=== PATIENT | female | born 1940 | race Caucasian/White ===

== ENCOUNTER 2016-12-06 11:23 | Outpatient (CLI) ==
[2016-12-06 17:40] VITALS: BMI 28.9
== END 2016-12-06 11:24 ==
LOC: AMBL 11:23
PROVIDERS: ATTEND Internal Medicine Geriatric Medicine
DX: R11.2 Nausea with vomiting, unspecified (principal); R68.89 Other general symptoms and signs

== ENCOUNTER 2016-12-06 11:32 | Observation (INO) | payer OTHER ==
[2016-12-06] MEDS ORDERED: SODIUM CHLORIDE 1,000 ML IV STA ×2 (11:46→14:55)
[2016-12-06] MEDS ORDERED: ZOFRAN 4 MG/2 ML IVP STA (11:46)
[2016-12-06] MEDS ORDERED: PROTONIX IV IVP STA (11:47)
[2016-12-06 12:18] LABS: BASOPHILS % (AUTO) 0.8 % (0.0-3.0); EOSINOPHILS # (AUTO) 0.1 K/ul (0.0-0.7); HEMATOCRIT 39.6 % (37.0-47.0); HEMOGLOBIN 13.3 g/dl (12.0-16.0); IMMATURE GRANULOCYTE % (AUTO) 0.2 % (0.0-5.0); LYMPHOCYTES # (AUTO) 1.1 K/uL (0.60-3.4); LYMPHOCYTES % (AUTO) 20.5 (10.0-50.0); MEAN CORPUSCULAR HEMOGLOBIN 32.8 pg (27.0-31.0); MEAN CORPUSCULAR HGB CONC 33.6 (31.8-35.4); MEAN CORPUSCULAR VOLUME 97.8 fl (81.0-99.0); MONOCYTES # (AUTO) 0.6 K/uL (0.4-2.0); MONOCYTES % (AUTO) 10.8 (0-10); NEUTROPHILS # (AUTO) 3.5 K/ul (2.0-6.9); NEUTROPHILS % (AUTO) 66.7; PLATELET COUNT 243 10^3/uL (140-440); RED BLOOD COUNT 4.05 10^6/ul (4.20-5.40); WHITE BLOOD COUNT 5.26 K/ul (4.6-10.2)
[2016-12-06 12:36] LABS: ALBUMIN 3.6 g/dL (3.4-5.0); ALBUMIN/GLOBULIN RATIO 1.16; ANION GAP 13.8; BILIRUBIN,TOTAL 0.38 mg/dL (0.00-1.20); BUN/CREATININE RATIO 14.86; CALCIUM 8.8 mg/dL (8.2-10.2); CREATININE 0.74 mg/dL (0.60-1.30); POTASSIUM 3.8 mmol/L (3.5-5.10); TOTAL PROTEIN 6.7 g/dL (5.8-8.1)
[2016-12-06 12:41] LABS: FLU INTERNAL QC INTERNAL QC VALID; RAPID FLU A NEGATIVE (NEGATIVE); RAPID FLU B NEGATIVE (NEGATIVE)
[2016-12-06] MEDS ORDERED: PHENERGAN 25 MG/ML VIAL 25 MG in SODIUM CHLORIDE 50 ML IV STA (12:53)
--- NOTE | 2016-12-06 12:53 | ED.PDOC ---
General ED Provider: Dr. DANIEL HOLDER Chief Complaint: Nausea/Vomiting Stated Complaint: patient is a 76 year old female who coems to the ER stating that she became nauseated after eating breakfast, vomited several times. [place] clammy and dizzy. she has been exosed to family members with stomach flu. Time Seen by Physician: 12:51 Mode of Arrival: Ambulance Information Source: Patient Exam Limitations: No limitations [facility] Documentation Reviewed and Agree: Yes GI Complaint Exam - Vomiting/Diarrhea Complaint/Exam Onset/Duration: today Symptoms Are: Resolved Episodes of Vomiting over last 24 Hours: 20 Episodes of Diarrhea Over Last 24 Hours: 0 Initial Severity: Severe Current Severity: Severe Character of Vomiting: Reports: Non-bilious Aggravating: Reports: Food Associated Signs and Symptoms: Reports: Dizziness, Light-headedness Recent Positive Test: No Use of Oral Contraceptives: No Use of Depoprovera: No Compliant With Contraceptive Use: No Non-GI Risk Factors: Reports: None Surgical Obstruction Risk Factors: Reports: None Related Surgical History: Reports: None Abdominal Findings: Present: None [place] Respirations Present: No Differential Diagnoses: Viral Gastroenteritis Review of Systems - Review Of Systems Constitutional: Reports: No symptoms Eyes: Reports: No symptoms Ears, Nose, Mouth, Throat: Reports: No symptoms Respiratory: Reports: No symptoms Cardiac: Reports: Lightheadedness GI: Reports: Nausea, Poor appetite, Vomiting : Reports: No symptoms Musculoskeletal: Reports: No symptoms Skin: Reports: No symptoms Neurological: Reports: Anxiety Endocrine: Reports: No symptoms Hematologic/Lymphatic: Reports: No symptoms All Other Systems: Reviewed and Negative Past Medical History - Past Medical History Endocrine: Reports: None Cardiovascular: Reports: Hypertension Respiratory: Reports: None Hematological: Reports: None Gastrointestinal: Reports: None Genitourinary: Reports: None Neuro/Psych: Reports: None Musculoskeletal: Reports: None Cancer: Reports: None Last Menstrual Period: na Other Pertinent Past Medical History: oseopenia - Surgical History General Surgical History: Reports: Hysterectomy - Family History Family History: Reports: None - Social History Smoking Status: Former smoker Hx Substance Use: No Alcohol Screening: Occasionally - Immunizations Tetanus Shot up to Date: Yes Physical Exam - Physical Exam Appearance: Ill-appearing, Well-nourished Ill-appearing: Moderate Eyes: ROBB, EOMI, Conjunctiva clear ENT: Ears normal, Nose normal, Oropharynx normal Neck: Supple Respiratory: Airway patent, Breath sounds clear, Breath sounds equal, Respirations nonlabored Cardiovascular: Pulses normal, No rub, No murmur, Bradycardia GI/: Soft, Nontender, No masses, Bowel sounds normal, No Organomegaly Musculoskeletal: Normal strength, ROM intact, No edema, No calf tenderness Skin: Warm, Dry, Normal color Neurological: Sensation intact, Motor intact, Reflexes intact, Cranial nerves intact, Alert, Oriented Psychiatric: Anxious Interpretation - Radiology Interpretation Radiology Interpretation By: Radiologist Radiology Results: No acute changes Exam Interpreted: CT Scan - [employer] Supervisor Rate: Lyndon Rhythm: Sinus Ectopy: None - EKG Interpretation Time of EKG #1: 13:36 Rate: Lyndon Rhythm: Sinus Ectopy: None [place]: NL Interpretation: sinus Dradycardia otehrwise normal ECG Re-Evaluation - Re-Evaluation Time of Re-Evaluation: 17:00 Status: Improved Appearance: NAD Lungs: Clear Additional Comments: Less dizzy. Critical Care Note - Critical Care Note Total Time (mins): 0 Course - Course Hematology/Chemistry: 12/06/16 12:10 12/06/16 12:10 Orders, Labs, Meds: Lab Review 12/06/16 12/06/16 12:10 13:15 WBC 5.26 RBC 4.05 L Hgb 13.3 Hct 39.6 MCV 97.8 MCH 32.8 H MCHC 33.6 RDW Coeff of Fernando 13.8 Plt Count 243 Immature Gran % (Auto) 0.2 Neut % (Auto) 66.7 Lymph % (Auto) 20.5 [place] % (Auto) 10.8 H Eos % (Auto) 1.0 Baso % (Auto) 0.8 Immature Gran # (Auto) 0.0 Neut # 3.5 Lymph # 1.1 [place] # 0.6 Eos # 0.1 Baso # 0.0 Sodium 139 Potassium 3.8 Chloride 105 Carbon Dioxide 24 Anion Gap 13.8 BUN 11 Creatinine 0.74 Estimated GFR (MDRD) 77.00 BUN/Creatinine Ratio 14.86 Glucose 109 Calcium 8.8 Total Bilirubin 0.38 AST 40 H ALT 27 Alkaline Phosphatase 52 L Total Creatine Kinase 145 CK-MB (CK-2) 2.1 CK-MB (CK-2) % 1.80427 Troponin I < 0.0100 Total Protein 6.7 Albumin 3.6 Globulin 3.1 Albumin/Globulin Ratio 1.16 Amylase 66 Lipase 24 Urine Color Yellow Urine Clarity Clear Urine pH 7.0 Ur Specific [place] 1.020 Urine Protein Negative Urine Glucose (UA) Negative Urine Ketones 3+ Urine Blood Negative Urine Nitrite Negative Urine Bilirubin Negative Urine Urobilinogen 0.2 Ur Leukocyte Esterase Negative Influenza A (Rapid) Negative Influenza B (Rapid) Negative Orders Category Date Time Status EKG-(ED ONLY) Stat CARDIO 12/06/16 13:29 Completed ED IV/MEDIPORT/POWERPORT .ONCE EMERGENCY 12/06/16 11:46 Active AMYLASE Stat LAB 12/06/16 12:10 Completed CBC W/ AUTO DIFF Stat LAB 12/06/16 12:10 Completed COMPREHENSIVE METABOLIC PANEL Stat LAB 12/06/16 12:10 Completed CREATINE KINASE Stat LAB 12/06/16 12:10 Completed LIPASE Stat LAB 12/06/16 12:10 Completed MOLECULAR GROUP A STREP Stat LAB 12/06/16 12:10 Results RAPID FLU A/B Stat LAB 12/06/16 12:10 Completed STREP SCREEN Stat LAB 12/06/16 12:10 Results TROPONIN I Stat LAB 12/06/16 12:10 Completed UA [URINALYSIS C & S IF INDICATED] Stat LAB 12/06/16 13:15 Completed 0.9 % Sodium Chloride [Saline Flush] MEDS 12/06/16 11:46 Active 1 syr IVF PRN PRN Ondansetron HCl/Pf [Zofran 4 mg/2 ml] MEDS 12/06/16 11:46 Discontinued 4 mg IVP ONCE STA Pantoprazole Sodium [Protonix IV] MEDS 12/06/16 11:47 Discontinued 40 mg IVP ONCE STA Promethazine HCl [Phenergan 25 mg/ml Vial] MEDS 12/06/16 12:56 Discontinued 25 mg .ROUTE .STK-MED ONE Promethazine HCl [Phenergan 25 mg/ml Vial] 25 mg MEDS 12/06/16 12:53 Discontinued 0.9 % Sodium Chloride [Sodium Chloride] 50 ml IV ONCE Sodium Chloride 0.9% [Sodium Chloride] 1,000 ml MEDS 12/06/16 11:46 Discontinued IV BOLUS Sodium Chloride 0.9% [Sodium Chloride] 1,000 ml MEDS 12/06/16 14:55 Discontinued IV BOLUS CHEST, 1V AP ONLY Stat RADS 12/06/16 14:[address] HEAD W/O CONTRAST Stat RADS 12/06/16 13:29 Completed Medications Generic Name Dose Route Start Last Admin Trade Name Freq PRN Reason Stop Dose Admin Acetaminophen 650 mg 12/06/16 16:49 Tylenol PO Q4H PRN Fever >101 Aspirin 81 mg 12/08/16 09:00 Aspirin Ec PO EVERY OTHER DAY DALTON Enoxaparin Sodium 40 mg 12/07/16 09:00 Lovenox SUBCUT DAILY DALTON Sodium Chloride 1,000 mls @ 150 mls/hr 12/06/16 17:00 Sodium Chloride IV .Q6H40M DALTON Non-Formulary Medication 5 mg 12/06/16 21:00 Ramipril [Ramipril] PO BEDTIME DALTON Ondansetron HCl 4 mg 12/06/16 16:49 Zofran 4 Mg/2 Ml IVP Q6H PRN Nausea / Vomiting Simvastatin 40 mg 12/06/16 21:00 Zocor PO BEDTIME DALTON Sodium Chloride 1 syr 12/06/16 11:46 Saline Flush IVF PRN PRN To flush IV Discontinued Medications Generic Name Dose Route Start Last Admin Trade Name Freq PRN Reason Stop Dose Admin Sodium Chloride 1,000 mls @ 1,000 mls/hr 12/06/16 11:46 12/06/16 12:12 Sodium Chloride IV 12/06/16 12:45 1,000 mls/hr BOLUS STA Administration Promethazine HCl 25 mg/ Sodium 51 mls @ 75 mls/hr 12/06/16 12:53 12/06/16 13: 10 Chloride IV 12/06/16 13:33 75 mls/hr ONCE STA Administration Sodium Chloride 1,000 mls @ 1,000 mls/hr 12/06/16 14:55 12/06/16 14:47 Sodium Chloride IV 12/06/16 15:54 1,000 mls/hr BOLUS STA Administration Ondansetron HCl 4 mg 12/06/16 11:46 12/06/16 12:12 Zofran 4 Mg/2 Ml IVP 12/06/16 11:47 4 mg ONCE STA Administration Pantoprazole Sodium 40 mg 12/06/16 11:47 12/06/16 12:13 Protonix Iv IVP 12/06/16 11:48 40 mg ONCE STA Administration Vital Signs: Temp Pulse Resp BP Pulse Ox 12/06/16 11:34 97.5 F L 58 L 16 128/92 H 95 Departure - Departure Time of Disposition: 17:15 Disposition: PLACED OBSERVATION Discharge Problem: Gastroenteritis, Dizziness Condition: Fair Pt referred to PMD for follow-up: Yes Allergies/Adverse Reactions: Allergies Penicillins Allergy (Unverified 12/06/16 11:48) RASH Home Medications: Ambulatory Orders Aspirin [Aspirin Ec] 81 mg PO EVERY OTHER DAY 06/14/15 Biotin/Silic/Cystein/Lut/Mvmin [Nick Matrix 5000 Complete Tab] 1 each PO DAILY 06/14/15 Lactobacillus Cmb#7/Fos/Inulin [Probiotic Complex Tablet] 1 each PO DAILY Omega3/Dha/Epa/Fish Oil/Vit D3 [Fish Oil + Vitamin D-3 Softgel] 1 each PO DAILY 06/14/15 Raloxifene HCl 60 mg PO DAILY 06/14/15 Ramipril 5 mg PO BEDTIME 06/14/15 Simvastatin 40 mg PO BEDTIME 06/14/15 Turmeric Root Extract [Turmeric] 500 mg PO DAILY 06/14/15 Loratadine 10 mg PO DAILY 06/19/16
[2016-12-06] MEDS ORDERED: PHENERGAN 25 MG/ML VIAL ONE (12:56)
[2016-12-06 13:25] LABS: BILIRUBIN,URINE Negative (NEGATIVE); KETONES,URINE 3+ (NEGATIVE); LEUKOCYTE ESTERASE ,URINE Negative (NEGATIVE); NITRITE,URINE Negative (NEGATIVE); PROTEIN,URINE Negative (NEGATIVE); URINE, BLOOD Negative (NEGATIVE)
[2016-12-06 13:26] LABS: ADD URINE MICROSCOPIC NO
[2016-12-06 14:03] LABS: CREATINE KINASE 145 U/L
--- NOTE | 2016-12-06 14:04 | CT ---
EXAM: CT head without contrast. HISTORY: Dizziness. COMPARISON: None available. TECHNIQUE: Multiple axial images of the brain were obtained from the skull base through the vertex without intravenous contrast. FINDINGS: There is no intracranial hemorrhage or extraaxial collection. The torres-white differentia tion is maintained without evidence for acute large vascular territory infarction. There are areas of periventricular and subcortical white matter low attenuation. The cortical sulci and cerebral ve ntricles are symmetrically enlarged. The basal cisterns are well visualized. There is no hydroceph alus, mass effect, or midline shift. The paranasal sinuses and mastoid air cells are clear. The ca lvarium is intact. IMPRESSION: 1. No acute intracranial abnormality. 2. Chronic small vessel ischemic changes and atrophy.
[2016-12-06 14:24] LABS: CREATINE KINASE MB 2.1 ng/ml (0.0-3.6)
--- NOTE | 2016-12-06 15:09 | DI ---
EXAM: Chest, one-view HISTORY: Cough FINDINGS: Cardiac and mediastinal contours are normal. Pulmonary vasculature is normal. Lungs are clear. Bony thorax is unremarkable. IMPRESSION: Within normal limits
[2016-12-06] MEDS ORDERED: ZOFRAN 4 MG/2 ML IVP PRN (16:49)
[2016-12-06] MEDS ORDERED: TYLENOL PO PRN (16:49)
[2016-12-06 17:40] VITALS: BMI 28.9
[2016-12-06] MEDS: SODIUM CHLORIDE 1,000 ML IV SCH (20:00)
[2016-12-06] MEDS ORDERED: ZOCOR PO SCH (21:00)
[2016-12-06] MEDS ORDERED: RAMIPRIL 5 MG PO SCH (21:00)
[2016-12-07] MEDS: SODIUM CHLORIDE 1,000 ML IV SCH ×5 (02:05→22:52)
[2016-12-07 08:55] LABS: BASOPHILS % (AUTO) 0.5 % (0.0-3.0); EOSINOPHILS % (AUTO) 0.9 % (0.0-7.0); HEMATOCRIT 37.8 % (37.0-47.0); HEMOGLOBIN 12.5 g/dl (12.0-16.0); IMMATURE GRANULOCYTE % (AUTO) 0.2 % (0.0-5.0); LYMPHOCYTES # (AUTO) 1.5 K/uL (0.60-3.4); LYMPHOCYTES % (AUTO) 34.4 (10.0-50.0); MEAN CORPUSCULAR HEMOGLOBIN 32.3 pg (27.0-31.0); MEAN CORPUSCULAR HGB CONC 33.1 (31.8-35.4); MEAN CORPUSCULAR VOLUME 97.7 fl (81.0-99.0); MONOCYTES # (AUTO) 0.5 K/uL (0.4-2.0); MONOCYTES % (AUTO) 10.8 (0-10); NEUTROPHILS # (AUTO) 2.3 K/ul (2.0-6.9); NEUTROPHILS % (AUTO) 53.2; PLATELET COUNT 248 10^3/uL (140-440); RED BLOOD COUNT 3.87 10^6/ul (4.20-5.40); WHITE BLOOD COUNT 4.36 K/ul (4.6-10.2)
[2016-12-07] MEDS: LOVENOX SUBCUT SCH (09:03)
[2016-12-07] MEDS: [UNRECOGNIZED DRUG - MIXTURE] PO SCH (09:04)
[2016-12-07] MEDS: NON-FORMULARY MEDICATION (Cyanocobalamin (Vitamin B-12) [Vitamin B-12] 2,500 MCG) PO SCH (09:10)
[2016-12-07] MEDS: EVISTA PO SCH (09:12)
[2016-12-07 09:13] LABS: ANION GAP 11.6; BUN/CREATININE RATIO 9.09; CALCIUM 8.3 mg/dL (8.2-10.2); CREATININE 0.77 mg/dL (0.60-1.30); POTASSIUM 3.6 mmol/L (3.5-5.10)
[2016-12-07] MEDS: [UNRECOGNIZED DRUG - OTHER] PO SCH (09:13)
[2016-12-07] MEDS: FOS PO SCH (09:13)
[2016-12-07] MEDS: INULIN PO SCH (09:13)
[2016-12-07] MEDS: LACTOBACILLUS CMB PO SCH (09:13)
[2016-12-07] MEDS: NON-FORMULARY MEDICATION (Loratadine [Loratadine] 10 MG) PO SCH (09:15)
[2016-12-07] MEDS: TURMERIC ROOT EXTRACT 500 MG PO SCH (09:17)
[2016-12-07] MEDS ORDERED: ZOCOR PO SCH (21:00)
[2016-12-07] MEDS ORDERED: RAMIPRIL 5 MG PO SCH (21:00)
[2016-12-08] MEDS: SODIUM CHLORIDE 1,000 ML IV SCH ×2 (05:09→13:01)
[2016-12-08 05:27] LABS: EOSINOPHILS # (AUTO) 0.1 K/ul (0.0-0.7); EOSINOPHILS % (AUTO) 1.9 % (0.0-7.0); HEMATOCRIT 34.8 % (37.0-47.0); HEMOGLOBIN 11.8 g/dl (12.0-16.0); LYMPHOCYTES # (AUTO) 1.1 K/uL (0.60-3.4); LYMPHOCYTES % (AUTO) 34.6 (10.0-50.0); MEAN CORPUSCULAR HEMOGLOBIN 32.5 pg (27.0-31.0); MEAN CORPUSCULAR HGB CONC 33.9 (31.8-35.4); MEAN CORPUSCULAR VOLUME 95.9 fl (81.0-99.0); MONOCYTES # (AUTO) 0.5 K/uL (0.4-2.0); MONOCYTES % (AUTO) 16.3 (0-10); NEUTROPHILS # (AUTO) 1.4 K/ul (2.0-6.9); NEUTROPHILS % (AUTO) 46.2; PLATELET COUNT 226 10^3/uL (140-440); RED BLOOD COUNT 3.63 10^6/ul (4.20-5.40); WHITE BLOOD COUNT 3.12 K/ul (4.6-10.2)
[2016-12-08 05:44] LABS: ANION GAP 11.2; BUN/CREATININE RATIO 8.45; CALCIUM 8.3 mg/dL (8.2-10.2); CREATININE 0.71 mg/dL (0.60-1.30); POTASSIUM 3.2 mmol/L (3.5-5.10)
[2016-12-08] MEDS: LACTOBACILLUS CMB PO SCH (09:02)
[2016-12-08] MEDS: [UNRECOGNIZED DRUG - OTHER] PO SCH (09:02)
[2016-12-08] MEDS: LOVENOX SUBCUT SCH (09:02)
[2016-12-08] MEDS: FOS PO SCH (09:02)
[2016-12-08] MEDS: INULIN PO SCH (09:02)
[2016-12-08] MEDS: ASPIRIN EC PO SCH ×2 (09:02→09:05)
[2016-12-08] MEDS: EVISTA PO SCH (09:03)
[2016-12-08] MEDS: NON-FORMULARY MEDICATION (Loratadine [Loratadine] 10 MG) PO SCH (09:03)
[2016-12-08] MEDS: NON-FORMULARY MEDICATION (Cyanocobalamin (Vitamin B-12) [Vitamin B-12] 2,500 MCG) PO SCH (09:04)
[2016-12-08] MEDS: [UNRECOGNIZED DRUG - MIXTURE] PO SCH (09:05)
[2016-12-08] MEDS: TURMERIC ROOT EXTRACT 500 MG PO SCH (09:06)
[2016-12-08 10:03] VITALS: BP 126/73; TEMP 97.5
[2016-12-08] MEDS ORDERED: K-DUR PO STA (10:09)
--- NOTE | 2016-12-11 09:08 | HP ---
DATE OF SERVICE: 12/06/16 REASON FOR HOSPITALIZATION: Nausea and vomiting HISTORY OF PRESENT ILLNESS: The patient is a 76 year old female who stays at home, and lives with her . She had her breakfast; green tea and bread, started vomiting almost 10 times, felt clammy and dizzy and was not able to walk straight and so the called the ambulance and the patient was brought to the [facility] emergency room. She was seen by Dr. Corado. Initial WBC and CBC was normal, BUN and creatinine was normal. AST was mildly elevated at 40. Her Monocytes were high. Urine 3+ ketone, Flu was negative and CAT scan of the Abdomen was not done. He did give some fluids but the patient was still unsteady to walk and still nauseous and not able to keep anything done. At that time the patient was admitted to the hospital for the IV fluids and the intractable nausea with acute gastroenteritis. REVIEW OF SYSTEMS: CONSTITUTIONAL: No night sweats. Weakness staggering. No fever or chills. HEENT: Eyes: No visual changes. No eye pain. No eye discharge. ENT: No runny nose. No epistaxis. No sinus pain. No sore throat. No odynophagia. No ear pain. No congestion. RESPIRATORY: No cough, no congestion. No hemoptysis. CARDIOVASCULAR: No angina symptoms. No CHF symptoms. No atypical chest pain for CAD. No palpitations. No shortness of breath. GASTROINTESTINAL: Abdominal cramping. Nausea and vomiting. No diarrhea or constipation. No hematemesis. No hematochezia. GENITOURINARY: No urgency. No frequency. No dysuria. No hematuria. No obstructive symptoms. No discharge. No pain. No significant abnormal bleeding. MUSCULOSKELETAL: No musculoskeletal pain. No joint swelling. No arthritis. NEUROLOGICAL: No headache. No neck pain. No syncope. No seizures. No dizziness. PSYCHIATRIC: Not anxious. No depression. No suicidal thoughts. No homicidal thoughts. SKIN: No rash. No lesions. No wounds. ENDOCRINE: No unexplained weight loss. No weight gain. HEMATOLOGIC/LYMPHATIC: No anemia. No purpura. No petechiae. No prolonged or excessive bleeding. No palpable lymph nodes. PERSONAL/FAMILY/SOCIAL HISTORY: The patient's smokes everyday. and lives with the . Family history is significant for the cancer. PAST MEDICAL/SURGICAL PROBLEMS: Hypertension Coronary artery disease Headaches Dyslipidemia Seasonal allergies Bilateral cataract surgery Hysterectomy Cholecystectomy MEDICATIONS: Raloxifene Simvastatin Ramipril Fish oil +Vitamin D-3 Probiotic complex tablet Turmeric Aspirin [place] Matrix 5000 complete tablet Vitamin B-12 Loratadine ALLERGIES: Penicillin PHYSICAL EXAMINATION: VITAL SIGNS: Blood pressure 128/92, respiratory rate 16, heart rate 58, temperature 97 and saturation is 95% on room air. HEENT: Head normocephalic, atraumatic. Eyes: Extraocular muscles are intact. Pupils are equal, round and reactive to light and accommodation. Ears: No lesions. Nose appeared normal. Throat: No exudate or erythema. Mucosa Dry. Pallor positive. No icterus. NECK: Supple. No JVD, no carotid bruit. No lymphadenopathy or thyromegaly. LUNGS: Decreased and clear to auscultation. Percussion note normal. Chest symmetrical. HEART: S1, S2, no S3. No murmurs. No cyanosis or clubbing. No ascites. Pulses: Dorsalis pedis and posterior tibial pulses +1 to +2 both sides. ABDOMEN: Soft. Diffused discomfort all over. Bowel sounds active. No CVA tenderness. No mass felt. EXTREMITIES: No edema. Full range of motion of all extremities, equal. NEUROLOGIC: No focal deficit. Cranial nerves II through XII are grossly intact. No headache, no double vision or headache. SKIN: Not dry. Intact. Turgor - normal. LYMPHATIC: No palpable lymph nodes/no lymphedema. MUSCULOSKELETAL: Normal joints with no swelling. Muscle tone is normal. LABS: WBC 5.26, hgb 13.3, hct 39.9, plt count 243, sodium 139, potassium 3.8, chloride 105, bicarb 24, BUN 11, creatinine 0.74, AST 40 and ALT 52. Urinalysis is negative and Serology negative. ASSESSMENT: 1. Acute gastroenteritis 2. Severe weakness 3. Dehydration 4. Hypertension 5. Dyslipidemia 6. Nicotine use PLAN: 1. Admit patient to the hospital 2. IV fluids 3. Lovenox for the DVT prophylaxis 4. Zofran Q 6 PRN 5. Continue home medications 6. High fluids 150ml per hour Will see the patient in daily rounds. TIME SPENT: More than 70 minutes. [facility]
--- NOTE | 2016-12-11 10:08 | PN ---
DATE OF SERVICE: 12/07/16 SUBJECTIVE: The patient is walking but using the walker. She says that she is still weak and unsteady. She was able to tolerate the jelly. The patient's is there , worried about her. REVIEW OF SYSTEMS: CONSTITUTIONAL: No fever, no chills. HEENT: Normal. ENDOCRINE: No weight gain, no weight loss. CVS: No angina symptoms. No CHF symptoms. No palpitations. No atypical chest pain for CAD. No shortness of breath. No PND, no orthopnea. RESPIRATORY: No cough, no hemoptysis. GI: No nausea, no vomiting. No abdominal pain. : No hematuria. No polyuria. MUSCULOSKELETAL:. No joint swelling. PSYCHIATRIC: Not anxious. No depression. No suicidal thoughts. No homicidal thoughts. SKIN: Intact. No rash. PHYSICAL EXAMINATION: V/S: Blood pressure 138/71, respiratory 18, heart rate 64 and temperature 97.6. HEENT: Normocephalic, atraumatic. Ears, eyes, nose and throat normal. Mucosa dry. NECK: Supple. No JVD, no carotid bruit. No lymphadenopathy. LUNGS: Clear to auscultation. No rales or rhonchi. HEART: S1, S2 normal. No S3. No murmur, gallop or regurgitation. ABDOMEN: Soft, nontender. Bowel sounds active. No rigidity. No rebound or guarding. No CVA tenderness. EXTREMITIES: No clubbing, cyanosis or pedal edema. MUSCULOSKELETAL: No joint swelling. NEUROLOGIC: Awake, alert, oriented times three. No focal deficit. LYMPHATIC: No lymph nodes palpable. SKIN: Intact. LABS: Sodium 143, potassium 3.6, chloride 112, bicarb 23, BUN 7, WBC 4.36, hgb 12.5, hct 37.8, plt count 248. ASSESSMENT: 1. Acute viral gastroenteritis 2. Dehydration which is resolved 3. Weakness and ataxia still present 4. History of hypertension 5. Dyslipidemia 6. Osteoarthritis. PLAN: 1. Resume regular diet 2. Continue Zofran 3. Continue Lovenox 4. If tolerates the diet the patient is willing to go home. Depending upon the patient's status she may go home today if she is feeling better. TIME SPENT: More than 30 minutes MTDD
--- NOTE | 2016-12-11 11:49 | PN ---
DATE OF SERVICE: 12/08/16 SUBJECTIVE: The patient was admitted with acute gastroenteritis and hypokalemia which is corrected. As of now the patient is eating and tolerating the food. She still has some dizziness when she walking otherwise walking with the walker. The patient's in the room. REVIEW OF SYSTEMS: CONSTITUTIONAL: No fever, no chills. HEENT: Normal. ENDOCRINE: No weight gain, no weight loss. CVS: No angina symptoms. No CHF symptoms. No palpitations. No atypical chest pain for CAD. No shortness of breath. No PND, no orthopnea. RESPIRATORY: No cough, no hemoptysis. GI: No nausea, no vomiting. No abdominal pain. : No hematuria. No polyuria. MUSCULOSKELETAL:. No joint swelling. PSYCHIATRIC: Not anxious. No depression. No suicidal thoughts. No homicidal thoughts. SKIN: Intact. No rash. PHYSICAL EXAMINATION: V/S: Blood pressure 126/53, respiratory rate 18, heart rate 55 and temperature 97.5. HEENT: Normocephalic, atraumatic. Ears, eyes, nose and throat normal. Mucosa dry. Pallor positive. No icterus. NECK: Supple. No JVD, no carotid bruit. No lymphadenopathy. LUNGS: Clear to auscultation. No rales or rhonchi. HEART: S1, S2 normal. No S3. No murmur, gallop or regurgitation. ABDOMEN: Soft, nontender. Bowel sounds active. No rigidity. No rebound or guarding. No CVA tenderness. EXTREMITIES: No clubbing, cyanosis or pedal edema. MUSCULOSKELETAL: No joint swelling. NEUROLOGIC: Awake, alert, oriented times three. No focal deficit. LYMPHATIC: No lymph nodes palpable. SKIN: Intact. LABS: WBC 3.12, hgb 11.8, hct 34.8, plt count 226, sodium 140, potassium 3.2 which is corrected after giving the potassium to 4.0, chloride 108, bicarb 24, BUN 6 and creatinine 0.71. ASSESSMENT: 1. Acute gastroenteritis 2. Dehydration 3. Hypokalemia 4. Hypertension 5. Dyslipidemia 6. History of hysterectomy PLAN: 1. Discharge the patient 2. Increase hydration 3. Probiotics yogurt 4. Followup with Dr. James as scheduled. TIME SPENT: More than 30 minutes MTDD
--- NOTE | 2017-01-07 14:59 | SSS ---
DATE OF SERVICE: 12/08/16 REASON FOR CONSULTATION/ADMISSION: Gastroenteritis with weakness HISTORY OF PRESENT ILLNESS: Onset-post breakfast vomiting- clammy- dizzy. Gerri Gutierrez who is a [facility] patient came to the emergency room with weakness, dizziness, nausea, vomiting and diarrheas. She was not able to keep anything down. At that time the patient is admitted to the hospital and started on the IV fluids Zofran. With the given fluid bolus the patient felt better and Protonix was given gradually. Lovenox was given for the DVT prophylaxis then gradually activity was increased which she tolerated well. She did not have any dizzy spells. CT did not show any acute problems. Clear liquid was given and then advanced as tolerated. She did tolerate the food well. As patient was doing fine and had no complication discharged home and had a followup with Dr. James as outpatient. REVIEW OF SYSTEMS: CONSTITUTIONAL: No night sweats. No fatigue, malaise, lethargy. No fever or chills. HEENT: Eyes: No visual changes. No eye pain. No eye discharge. ENT: No runny nose. No epistaxis. No sinus pain. No sore throat. No odynophagia. No ear pain. No congestion. RESPIRATORY: No cough, no congestion. No hemoptysis. CARDIOVASCULAR: No angina symptoms. No CHF symptoms. No atypical chest pain for CAD. No palpitations. No shortness of breath. GASTROINTESTINAL: No abdominal pain. Nausea and vomiting. No diarrhea or constipation. No hematemesis. No hematochezia. Poor appetite. GENITOURINARY: No urgency. No frequency. No dysuria. No hematuria. No obstructive symptoms. No discharge. No pain. No significant abnormal bleeding. MUSCULOSKELETAL: No musculoskeletal pain. No joint swelling. NEUROLOGICAL: Awake, alert, oriented to time, place and person. No headache. No neck pain. No syncope. No seizures. Light headedness. PSYCHIATRIC: Anxious. No depression. No suicidal thoughts. No homicidal thoughts. SKIN: No rash. No lesions. No wounds. ENDOCRINE: No unexplained weight loss. No weight gain. HEMATOLOGIC/LYMPHATIC: No anemia. No purpura. No petechiae. No prolonged or excessive bleeding. No palpable lymph nodes. PAST HISTORY: Hypertension Osteopenia Status post hysterectomy Status post bilateral cataracts Status post Cholecystectomy PERSONAL/FAMILY HISTORY/SOCIAL HISTORY: The patient is . History of smoking. No alcohol use. PHYSICAL EXAMINATION: VITAL SIGNS: Temperature 97.5, pulse 58, respiratory rate 16, blood pressure 128/92; height 5'5 and weight 170. HEENT: Head normocephalic, atraumatic. Eyes: Extraocular muscles are intact. Pupils are equal, round and reactive to light and accommodation. Ears: No lesions. Nose appeared normal. Throat: No exudate or erythema. Pallor positive. NECK: Supple. No JVD, no carotid bruit. No lymphadenopathy or thyromegaly. LUNGS: Bilateral equal and clear to auscultation. Percussion note normal. Chest symmetrical. HEART: S1, S2, no S3. No murmurs. No cyanosis or clubbing. No ascites. Pulses: Dorsalis pedis and posterior tibial pulses +1 to +2 both sides. ABDOMEN: Soft. Nontender. Bowel sounds active. No CVA tenderness. No mass felt. EXTREMITIES: No edema. Full range of motion of all extremities, equal. NEUROLOGIC: No focal deficit. Cranial nerves II through XII are grossly intact. No headache, no double vision or headache. Alert and oriented times three. SKIN: Not dry. Intact. Turgor - normal. LYMPHATIC: No palpable lymph nodes/no lymphedema. MUSCULOSKELETAL: Normal joints with no swelling. Muscle tone is normal. Old/present records reviewed: Yes. EDUCATION CARRIED OUT: Dehydration ALLERGIES: Penicillin MEDICATIONS: Raloxifene Simvastatin Ramipril Fish oil Probiotic Tumeric Aspirin [place] Matrix Vitamin B12 Loratadine LABS/EKG'S/X-RAY/ECHO/ABG: EKG- Sinus Bradycardia; Chest x-ray within normal limits, CT head with no acute intracranial abnormalities. AST 40 Alkaline phosphatase 52. Urinalysis 3+ ketones. Flu A and B are negative. PROGRESS NOTES: See EMR. DIAGNOSES: 1. Acute gastroenteritis 2. Hypokalemia 3. Hypertension 4. Dyslipidemia RECOMMENDATIONS/PLAN: 1. Soft diet 2-3 days 2. Probiotics 3. Yogurt 4. Increase hydration 5. Resume gradual exercise. TIME SPENT: More than 70 minutes. MTDD
== END 2016-12-08 13:55 | disposition home or self-care (01) ==
LOC: ED 11:32 → MEDSURG A 16:30
PROVIDERS: ADMIT Emergency Medicine; ATTEND Emergency Medicine
DX: K52.9 Noninfective gastroenteritis and colitis, unspecified (principal); R42 Dizziness and giddiness; R53.1 Weakness; R27.0 Ataxia, unspecified; E87.6 Hypokalemia; E86.0 Dehydration; I10 Essential (primary) hypertension; E78.5 Hyperlipidemia, unspecified; M19.90 Unspecified osteoarthritis, unspecified site; F17.200 Nicotine dependence, unspecified, uncomplicated; Z79.899 Other long term (current) drug therapy
CPT/HCPCS: 36415; 80048; 80053; 81001; 82150; 82550; 82553; 83690; 84132; 84484; 85025; 87651; 87804; 87880; 93005; 93010; 96361; 96365; 96372; 96375; 99217; 99219; 99226; 99284

== ENCOUNTER 2016-12-23 10:10 | Outpatient (CLI) ==
[2016-12-23 13:33] LABS: BASOPHILS # (AUTO) 0.1 K/uL (0-0.2); BASOPHILS % (AUTO) 0.9 % (0.0-3.0); EOSINOPHILS # (AUTO) 0.2 K/ul (0.0-0.7); HEMATOCRIT 44.3 % (37.0-47.0); HEMOGLOBIN 14.6 g/dl (12.0-16.0); IMMATURE GRANULOCYTE % (AUTO) 0.2 % (0.0-5.0); LYMPHOCYTES % (AUTO) 35.8 (10.0-50.0); MEAN CORPUSCULAR HEMOGLOBIN 32.3 pg (27.0-31.0); MONOCYTES # (AUTO) 0.5 K/uL (0.4-2.0); MONOCYTES % (AUTO) 9.7 (0-10); NEUTROPHILS # (AUTO) 2.7 K/ul (2.0-6.9); NEUTROPHILS % (AUTO) 49.4; PLATELET COUNT 397 10^3/uL (140-440); RED BLOOD COUNT 4.52 10^6/ul (4.20-5.40); WHITE BLOOD COUNT 5.45 K/ul (4.6-10.2)
[2016-12-23 13:35] LABS: PH,URINE 5.5 (5-9)
[2016-12-23 13:36] LABS: PROTEIN,URINE TRACE (NEGATIVE)
[2016-12-23 13:37] LABS: ADD URINE MICROSCOPIC YES; BILIRUBIN,URINE NEGATIVE (NEGATIVE); KETONES,URINE TRACE (NEGATIVE); LEUKOCYTE ESTERASE ,URINE 1+ (NEGATIVE); NITRITE,URINE NEGATIVE (NEGATIVE); URINE, BLOOD NEGATIVE (NEGATIVE)
[2016-12-23 14:06] LABS: ALBUMIN 3.7 g/dL (3.4-5.0); ALBUMIN/GLOBULIN RATIO 1.16; ANION GAP 12.6; BILIRUBIN,TOTAL 0.76 mg/dL (0.00-1.20); BUN/CREATININE RATIO 18.88; CALCIUM 9.4 mg/dL (8.2-10.2); CHOL/HDL RATIO 2.7 (4.5-5.5); CREATININE 0.9 mg/dL (0.60-1.30); POTASSIUM 4.6 mmol/L (3.5-5.10); TOTAL PROTEIN 6.9 g/dL (5.8-8.1)
== END 2016-12-23 10:11 | disposition home or self-care (01) ==
LOC: LAB 10:10
PROVIDERS: ATTEND General Practice
DX: E03.9 Hypothyroidism, unspecified (principal); I10 Essential (primary) hypertension; Z79.899 Other long term (current) drug therapy
CPT/HCPCS: 36415; 80053; 80061; 81001; 84443; 85025; 87086

== ENCOUNTER 2017-03-05 11:19 | Outpatient (CLI) | END 2017-03-05 11:20 | disposition home or self-care (01) | LOC: LAB 11:19 | PROVIDERS: ATTEND General Practice | DX: R50.9 Fever, unspecified (principal); R05 Cough; R51 Headache; R53.83 Other fatigue; R61 Generalized hyperhidrosis | CPT/HCPCS: 36415; 86644; 86645; 86710 ==

== ENCOUNTER 2017-03-13 10:50 | Outpatient (CLI) | payer OTHER ==
--- NOTE | 2017-03-13 11:24 | CT ---
EXAM: CT of the chest without contrast History: Cough. Comparison: Chest radiograph 12/06/2016, chest CT 04/02/2012 Technique: Multiplanar CT images through the thorax were obtained without the administration of IV contrast Findings: Normal heart size. No pericardial effusion. Mildly enlarged mediastinal lymph nodes stacia suring up to 1.3 cm in the pretracheal region. Evaluation for hilar lymph nodes is limited due to t he lack of contrast administration. No axillary adenopathy. Right middle lobe infiltrate with air bronchograms. No pneumothorax. No pleural fluid. Calcified alban ng nodules. Within the visualized upper abdomen, cholecystectomy clips. Small hiatal hernia. Calcified granulo mas within the spleen. No acute osseous abnormalities. Impression: 1. Right middle lobe pneumonia. Follow-up recommended to assure resolution and any underlying neop lastic etiology. 2. Mediastinal lymphadenopathy could be reactive or malignant. Close attention to on follow-up rec ommended.
== END 2017-03-13 10:51 | disposition home or self-care (01) ==
LOC: RAD 10:50
PROVIDERS: ATTEND General Practice
DX: R05 Cough (principal); Z87.891 Personal history of nicotine dependence

== ENCOUNTER 2017-04-02 09:51 | Outpatient (CLI) | payer OTHER ==
--- NOTE | 2017-04-02 12:05 | CT ---
EXAM: CT THORAX HISTORY: Pneumonia, follow-up. Cough. TECHNIQUE: CT thorax without intravenous contrast. 5-mm axial sections. Coronal and sagittal re-fo rmations. COMPARISON: 03/13/2017 FINDINGS: Normal heart size. Trace pericardial fluid. Thoracic aorta is within normal limits. Evaluation of the mediastinum and hilar structures is limited without the administration of intravenous contrast. There are mildly prominent subcarinal and right hilar lymph nodes measuring close to a centimeter short axis. These are stable. Prominent size of the thyroid gland. There is discoid consolidation extending from the right hilum into the upper right middle lobe. The re is no obvious endobronchial consolidation or mass. There is a nearly 1 cm nodule which is pleura l-based at the posterior right cardiophrenic angle unchanged since previous exam and an older CT eric ed 04/02/2012. This may represent a tiny atypical lymph node or a pericardial cyst, among other pos sibilities. Lungs are otherwise clear. No acute bony abnormality. IMPRESSION: 1. Persistent although improved consolidation in the right middle lobe. Consider follow-up chest r adiography to assure clearance. 2. Nonspecific mediastinal lymph nodes are stable. 3. Prominent thyroid gland.
== END 2017-04-02 09:52 | disposition home or self-care (01) ==
LOC: RAD 09:51
PROVIDERS: ATTEND General Practice
DX: J18.1 Lobar pneumonia, unspecified organism (principal); R05 Cough

== ENCOUNTER 2017-05-07 12:03 | Outpatient (CLI) | END 2017-05-07 12:04 | disposition home or self-care (01) | LOC: LAB 12:03 | PROVIDERS: ATTEND General Practice | DX: J02.9 Acute pharyngitis, unspecified (principal) | CPT/HCPCS: 87070 ==

== ENCOUNTER 2017-06-05 08:49 | Outpatient (CLI) ==
[2017-06-05 12:42] LABS: BASOPHILS % (AUTO) 0.8 % (0.0-3.0); EOSINOPHILS # (AUTO) 0.2 K/ul (0.0-0.7); EOSINOPHILS % (AUTO) 4.9 % (0.0-7.0); HEMATOCRIT 43.2 % (37.0-47.0); HEMOGLOBIN 14.4 g/dl (12.0-16.0); IMMATURE GRANULOCYTE % (AUTO) 0.2 % (0.0-5.0); MEAN CORPUSCULAR HEMOGLOBIN 32.7 pg (27.0-31.0); MEAN CORPUSCULAR HGB CONC 33.3 (31.8-35.4); MONOCYTES # (AUTO) 0.6 K/uL (0.4-2.0); MONOCYTES % (AUTO) 11.5 (0-10); NEUTROPHILS % (AUTO) 40.6; PLATELET COUNT 352 10^3/uL (140-440); RED BLOOD COUNT 4.41 10^6/ul (4.20-5.40); WHITE BLOOD COUNT 4.86 K/ul (4.6-10.2)
[2017-06-05 13:04] LABS: BILIRUBIN,URINE Negative (NEGATIVE); KETONES,URINE Negative (NEGATIVE); LEUKOCYTE ESTERASE ,URINE Negative (NEGATIVE); NITRITE,URINE Negative (NEGATIVE); PH,URINE 7.5 (5-9); PROTEIN,URINE Negative (NEGATIVE); URINE, BLOOD Negative (NEGATIVE)
[2017-06-05 13:07] LABS: ALBUMIN 3.8 g/dL (3.4-5.0); ALBUMIN/GLOBULIN RATIO 1.12; BILIRUBIN,TOTAL 0.76 mg/dL (0.00-1.20); BUN/CREATININE RATIO 10.84; CALCIUM 9.7 mg/dL (8.2-10.2); CHOL/HDL RATIO 2.5 (4.5-5.5); CREATININE 0.83 mg/dL (0.60-1.30); TOTAL PROTEIN 7.2 g/dL (5.8-8.1)
[2017-06-05 13:11] LABS: ADD URINE MICROSCOPIC NO
== END 2017-06-05 08:50 | disposition home or self-care (01) ==
LOC: LAB 08:49
PROVIDERS: ATTEND General Practice
DX: E03.9 Hypothyroidism, unspecified (principal); I10 Essential (primary) hypertension; R27.0 Ataxia, unspecified; Z79.899 Other long term (current) drug therapy
CPT/HCPCS: 36415; 80053; 80061; 81001; 85025

== ENCOUNTER 2017-06-11 14:11 | Outpatient (CLI) ==
--- NOTE | 2017-06-11 14:54 | CT ---
Exam: CT of the chest without intravenous contrast. Comparison: CT performed 04/02/2017. Reason for exam: Abnormal findings on diagnostic imaging. FINDINGS: Significantly improved consolidative changes with a small residual focus of atelectasis o r pneumonia in the right anterior lung base with air bronchograms. The heart is not enlarged. No pn eumothorax or pleural effusion. The aorta is normal in its course and caliber. No suspicious appea ring osteoblastic or osteolytic lesions. The gallbladder is been removed. Old granulomas disease is seen within the spleen. Hepatic hypodensities in the partially imaged upper abdomen are incompletely evaluated without intra venous contrast administration. Impression: Small residual focus of atelectasis or consolidation in the right anterior lung base. Imaging findi ngs are significantly improved compared to the previous exams. If clinical concern exists, follow-u p CT may be performed to document resolution.
== END 2017-06-11 14:12 | disposition home or self-care (01) ==
LOC: RAD 14:11
PROVIDERS: ATTEND General Practice
DX: R93.8 Abnormal findings on diagnostic imaging of other specified body structures (principal)

== ENCOUNTER 2017-12-23 12:11 | Outpatient (CLI) | payer OTHER | END 2017-12-23 12:12 | disposition home or self-care (01) | LOC: FCC-LAB 12:11 | PROVIDERS: ATTEND General Practice | DX: I10 Essential (primary) hypertension (principal); Z79.899 Other long term (current) drug therapy; N39.0 Urinary tract infection, site not specified | CPT/HCPCS: 36415; 80053; 80061; 81001; 85025; 87086 ==

== ENCOUNTER 2018-06-30 10:43 | Outpatient (CLI) | payer OTHER | END 2018-06-30 10:44 | disposition home or self-care (01) | LOC: RHC-LAB 10:43 | PROVIDERS: ATTEND General Practice | DX: E03.9 Hypothyroidism, unspecified (principal); I10 Essential (primary) hypertension; Z79.899 Other long term (current) drug therapy | CPT/HCPCS: 36415; 80053; 80061; 81001; 84443; 85025; 87086 ==

== ENCOUNTER 2018-07-20 08:14 | Day surgery (SDC) | payer OTHER ==
[2018-07-20] MEDS ORDERED: VERSED ONE (10:30)
[2018-07-20] MEDS ORDERED: DIPRIVAN 20 ML VIAL IVP ONE (10:30)
--- NOTE | 2018-07-21 09:42 | OP ---
INDICATIONS FOR PROCEDURE: 78-year-old female presents for colonoscopy exam. She has a family history of colon polyps involving her brother in his fifties and her mother had colon cancer at age 57. MEDICATIONS: SEE ANESTHESIA NOTES. PROCEDURE: COLONOSCOPY WITH SNARE POLYPECTOMY. REPORT: The risks, benefits, alternatives and limitations were discussed in detail with the patient. Informed consent was obtained. After adequate sedation was achieved, a digital rectal exam revealed good tone, no masses. The colonoscope was introduced into the rectum and advanced under direct visual guidance to the cecum. The cecum was identified by the appendiceal orifice and IC valve. I then slowly withdrew the scope in a circumferential manner examining the mucosa quite carefully. I looked on the proximal and distal side of folds and flexures as best as possible. I was able to retroflex the scope in the right colon and left colon to increase visualization. At the hepatic flexure, there was a pedunculated multi lobular polyp. I removed this by snare technique. It was about 1 cm in size. In the rectum there was as small 5 mm semi sessile polyp that I removed by snare technique. There were a few small mouth diverticula in the sigmoid colon. No other abnormalities were noted including on retroflex view of the anal canal. The prep was good. The withdrawal time was 9 minutes and 45 seconds. The patient tolerated the procedure well with stable vital signs and pulse oximetry throughout. IMPRESSION: 1. TWO (2) POLYPS REMOVED. 2. MILD DIVERTICULOSIS. RECOMMENDATIONS: 1. High fiber diet. 2. Office visit as needed. 3. Await polyp pathology. If everything is benign as expected, I recommend repeat colonoscopy examination again in 3 years, sooner if there are any signs or symptoms to indicate otherwise. CC: DR. MAIKEL BLANTON
[2018-07-22 13:45] VITALS: BP 123/67; TEMP 98.6
== END 2018-07-20 11:45 | disposition home or self-care (01) ==
LOC: SURG 08:14
PROVIDERS: ATTEND Internal Medicine Gastroenterology
DX: Z86.010 Personal history of colon polyps (principal); Z80.0 Family history of malignant neoplasm of digestive organs; Z83.71 Family history of colonic polyps; D12.3 Benign neoplasm of transverse colon; K62.1 Rectal polyp

== ENCOUNTER 2018-12-22 08:27 | Outpatient (CLI) | END 2018-12-22 08:28 | disposition home or self-care (01) | LOC: RHC-LAB 08:27 | PROVIDERS: ATTEND General Practice | DX: E03.9 Hypothyroidism, unspecified (principal); I10 Essential (primary) hypertension; Z79.899 Other long term (current) drug therapy | CPT/HCPCS: 36415; 80053; 80061; 81001; 84443; 85025; 87086 ==

== ENCOUNTER 2019-06-22 08:00 | Outpatient (CLI) | END 2019-06-22 08:01 | disposition home or self-care (01) | LOC: RHC-LAB 08:00 | PROVIDERS: ATTEND General Practice | DX: E03.9 Hypothyroidism, unspecified (principal); I10 Essential (primary) hypertension; Z79.899 Other long term (current) drug therapy | CPT/HCPCS: 36415; 80053; 80061; 81001; 84443; 85025 ==

== ENCOUNTER 2021-06-04 10:09 | Observation (INO) ==
--- NOTE | 2021-06-04 10:36 | ED.PDOC ---
General ED Provider: Dr. BRUNO CASILLAS Chief Complaint: Hypertension Stated Complaint: Sudden onset of chest palpitations this morning. Upon arrival to ER placed on nuclear monitoring technician and HR noted to increase from baselined of 79 to 170 bpm. Denies chest pain or dyspnea Mode of Arrival: Walk-In Information Source: Patient Exam Limitations: No limitations Primary Care Provider: ZEN HAYDEN MD Nursing and Triage Documentation Reviewed and Agree: Yes Does patient meet sepsis criteria?: No System Inflammatory Response Syndrome: Not Applicable Sepsis Protocol: For patient's 13 years and over: Temp is 96.8 and below OR 101 and greater Pulse >90 BPM Resp >20/minute Acutely Altered Mental Status Are patient's symptoms suggestive of a new infection, such as: -Pneumonia -Skin, Soft Tissue -Endocarditis -UTI -Bone, Joint Infection -Implantable Device -Acute Abdominal Infection -Wound Infection -Meningitis -Blood Stream Catheter Infection -Unknown Cardiovascular Complaint Exam Palpitations Complaint/Exam Onset/Duration: this AM Symptoms Are: Still present Timing: Constant Initial Severity: Moderate Current Severity: Moderate Character: Reports Fast and Irregular Aggravating: Reports None Alleviating: Reports None Associated Signs and Symptoms: Reports Lightheadedness and Dizziness Related Surgical History: Reports None Cardiac Risk Factors: Reports Hypertension and Elevated lipids Pulmonary Embolism Risk Factors: Reports None Atrial Fibrillation Risk Factors: Reports Hypertension Thyroid Exam: Normal Differential Diagnoses: Cardiomyopathy, Mitral Valve Prolapse and Hyperventilation Quality Indicators for Cardiac Chest Pain: EKG in 10min. Review of Systems Review Of Systems Constitutional: Reports Malaise and Weakness Eyes: Reports No symptoms Ears, Nose, Mouth, Throat: Reports No symptoms Respiratory: Reports Short of air; Denies Cough, Orthopnea, Stridor or Other Cardiac: Reports No symptoms GI: Reports No symptoms : Reports No symptoms Musculoskeletal: Reports No symptoms Skin: Reports No symptoms Neurological: Reports Anxiety Endocrine: Reports No symptoms Hematologic/Lymphatic: Reports No symptoms All Other Systems: Reviewed and Negative [facility] Medical History (Updated 06/04/21 @ 12:38 by BRUNO CASILLAS DO) Cataract Dizziness Dyslipidemia Gastroenteritis History of seasonal allergies Hypertension Measles Mumps Osteopenia Varicella Family History Mother No problems noted. FATHER No problems noted. SISTER No problems noted. BROTHER No problems noted. Social History Smoking and tobacco status: Never smoker Passive smoking exposure: No Second hand smoke exposure: No Smoking risk assessment performed: Yes Alcohol intake: never Counseling given: No Substance use type: does not use Counseling given: No Special hyun needs: No Household members: spouse Housing: house Lives independently: Yes Daycare: no daycare prison: No Sexually active: Yes Do you think of yourself as: straight/heterosexual Current gender identity: female Seatbelt use: always Drives intoxicated or rides with intoxicated emergency detail driver: No Surgical History Cataract extraction and insertion of intraocular lens Lumpectomy of breast Status post cholecystectomy Status post hysterectomy Female Reproductive History Menstrual Hx Hysterectomy: Yes Hx Tubal Ligation: No Physical Exam Physical Exam Appearance: Reports Well-appearing and No pain distress Ill-appearing: Mild Pain Distress: None Eyes: Reports ROBB, EOMI, Conjunctiva clear and Conjunctiva inflammed ENT: Reports Ears normal, Nose normal and Oropharynx normal Neck: Nonsupple Respiratory: Reports Airway patent, Breath sounds clear and Breath sounds equal Cardiovascular: Reports Pulses normal, No rub, No murmur, Irregular rhythm and Tachycardia GI/: Reports Soft, Nontender, No masses and Bowel sounds normal Musculoskeletal: Reports Normal strength, ROM intact and No edema Skin: Reports Warm and Normal color Neurological: Reports Sensation intact, Motor intact, Reflexes intact, Cranial nerves intact, Alert and Oriented Psychiatric: Reports Affect appropriate, Mood appropriate and Anxious Interpretation EKG Interpretation Time of EKG #1: 10:25 Rate: Tachy Rhythm: Other (atrial fib RVR) Ectopy: None ST Segment: Normal Interpretation: Atrial Fib RVR Physician Notification Case Discussed Physician Notified: Dr Hayden-admit for eval and tx Time of Notification: 12:15 Critical Care Note Critical Care Note Total Critical Care Time (mins): 60 Course Course Hematology/Chemistry: 06/04/21 10:56 06/04/21 10:56 Orders, Labs, Meds: Lab Review 06/04/21 06/04/21 06/04/21 10:40 10:56 10:56 WBC 7.77 RBC 4.50 Hgb 14.9 Hct 43.8 MCV 97.3 MCH 33.1 H MCHC 34.0 RDW Coeff of Fernando 13.3 Plt Count 329 Immature Gran % (Auto) 0.3 Neut % (Auto) 55.8 Lymph % (Auto) 32.2 [place] % (Auto) 9.8 Eos % (Auto) 1.4 Baso % (Auto) 0.5 Neut # (Auto) 4.3 Lymph # (Auto) 2.5 [place] # (Auto) 0.8 Eos # (Auto) 0.1 Baso # (Auto) 0.0 Immature Gran # (Auto) 0.0 PT INR APTT Sodium 138.3 Potassium 4.51 Chloride 108.0 H Carbon Dioxide 23.3 Anion Gap 11.51 BUN 12.5 Creatinine 0.83 Estimated GFR (MDRD) 66.00 BUN/Creatinine Ratio 15.06 Glucose 102.5 Calcium 9.12 Total Bilirubin 0.67 AST 30.0 ALT 21.5 Alkaline Phosphatase 65.3 Troponin I < 0.012 Total Protein 6.98 Albumin 4.08 Globulin 2.90 Albumin/Globulin Ratio 1.40 D-Dimer Adenovirus (PCR) Not detected B. pertussis DNA (PCR) Not detected B.parapertussis DNA PCR Not detected C. pneumoniae DNA (PCR) Not detected Coronavirus OC43 (PCR) Not detected Coronavirus HKU1 (PCR) Not detected Coronavirus 229E (PCR) Not detected Coronavirus NL63 (PCR) Not detected Human Metapneumovir PCR Not detected Influenza Type A (PCR) Not detected Influenza B (RT-PCR) Not detected M. pneumoniae (PCR) Not detected Parainfluenza 1 (PCR) Not detected Parainfluenza 2 (PCR) Not detected Parainfluenza 3 (PCR) Not detected Parainfluenza 4 (PCR) Not detected RSV (PCR) Not detected Entero/Rhino (PCR) Not detected SARS-CoV-2 (PCR) Not detected 06/04/21 06/04/21 11:11 11:11 WBC RBC Hgb Hct MCV MCH MCHC RDW Coeff of Fernando Plt Count Immature Gran % (Auto) Neut % (Auto) Lymph % (Auto) [place] % (Auto) Eos % (Auto) Baso % (Auto) Neut # (Auto) Lymph # (Auto) [place] # (Auto) Eos # (Auto) Baso # (Auto) Immature Gran # (Auto) PT 9.9 INR 0.93 APTT 24.5 Sodium Potassium Chloride Carbon Dioxide Anion Gap BUN Creatinine Estimated GFR (MDRD) BUN/Creatinine Ratio Glucose Calcium Total Bilirubin AST ALT Alkaline Phosphatase Troponin I Total Protein Albumin Globulin Albumin/Globulin Ratio D-Dimer 370.10 Adenovirus (PCR) B. pertussis DNA (PCR) B.parapertussis DNA PCR C. pneumoniae DNA (PCR) Coronavirus OC43 (PCR) Coronavirus HKU1 (PCR) Coronavirus 229E (PCR) Coronavirus NL63 (PCR) Human Metapneumovir PCR Influenza Type A (PCR) Influenza B (RT-PCR) M. pneumoniae (PCR) Parainfluenza 1 (PCR) Parainfluenza 2 (PCR) Parainfluenza 3 (PCR) Parainfluenza 4 (PCR) RSV (PCR) Entero/Rhino (PCR) SARS-CoV-2 (PCR) Orders Category Date Time Status PLACE PATIENT OBSERVATION .TO MEDS[facility] (MONITORED BED ADMISSION 06/04/21 12:25 Ordered ) ECHOCARDIOGRAM 2D-M MODE Routine CARDIO 06/04/21 12:29 Ordered EKG-(ED ONLY) Stat CARDIO 06/04/21 10:36 Completed OXYGEN Routine CARDIO 06/04/21 10:36 Ordered OXYGEN Routine CARDIO 06/04/21 12:29 Ordered ACTIVITY .BR with BRP CARE 06/04/21 12:29 Ordered BLOOD GLUCOSE MONITORING 0630,1100,1700,2100 CARE 06/04/21 12:30 Ordered INTAKE & OUTPUT Q8HR CARE 06/04/21 12:29 Ordered TELEMETRY MONITORING TELE CARE 06/04/21 12:26 Ordered VITAL SIGNS Q4HR CARE 06/04/21 12:29 Ordered REGULAR DIET DIETARY 06/04/21 Lunch Ordered IV [ED IV/MEDIPORT/POWERPORT] .ONCE EMERGENCY 06/04/21 10:36 Active CBC W/ AUTO DIFF Stat LAB 06/04/21 10:56 Completed CMP [COMPREHENSIVE METABOLIC PANEL] Stat LAB 06/04/21 10:56 Completed D-DIMER Stat LAB 06/04/21 11:11 Completed PARTIAL THROMBOPLASTIN TIME Stat LAB 06/04/21 11:11 Completed PT WITH INR Stat LAB 06/04/21 11:11 Completed RESPIRATORY PANEL 2.1 (PCR) Stat LAB 06/04/21 10:40 Completed TROPONIN I Q8H LAB 06/04/21 18:30 Ordered TROPONIN I Q8H LAB 06/05/21 02:30 Ordered TROPONIN I Stat LAB 06/04/21 10:56 Completed UA [URINALYSIS C & S IF INDICATED] Stat LAB 06/04/21 10:45 Uncollected 0.9 % Sodium Chloride [Saline Flush] MEDS 06/04/21 10:36 Active 1 syr IVF PRN PRN Apixaban [Eliquis] MEDS 06/04/21 11:04 Discontinued 5 mg PO ONCE STA Diltiazem HCl [Cardizem Inj] MEDS 06/04/21 10:53 Discontinued 15 mg IVP ONCE STA Diltiazem HCl [Cardizem] 125 mg MEDS 06/04/21 11:00 Active 0.9 % Sodium Chloride [Sodium Chloride] 100 ml IV TITRATION RESUSCITATION STATUS Routine OTHERS 06/04/21 12:29 Ordered CHEST, 1V AP ONLY Stat RADS 06/04/21 10:36 Completed Medications Generic Name Dose Route Start Last Admin Trade Name Freq PRN Reason Stop Dose Admin Diltiazem HCl 125 mg/ Sodium 125 mls @ 5 mls/hr 06/04/21 11:00 06/04/21 11:49 Chloride IV 10 mg/hr TITRATION DALTON 10 mls/hr Titration Protocol 5 MG/HR Sodium Chloride 1 syr 06/04/21 10:36 06/04/21 11:20 0.9% Sodium Chloride 10 Ml Disp.Syrin IVF 1 syr PRN PRN Administration To flush IV Discontinued Medications Generic Name Dose Route Start Last Admin Trade Name Freq PRN Reason Stop Dose Admin Apixaban 5 mg 06/04/21 11:04 06/04/21 11:17 Apixaban 5 Mg Tab PO 06/04/21 11:05 5 mg ONCE STA Administration Diltiazem HCl 15 mg 06/04/21 10:53 06/04/21 11:18 Diltiazem Hcl Inj 25 Mg/5 Ml Vial IVP 06/04/21 10:54 15 mg ONCE STA Administration Vital Signs: Temp Pulse Resp BP Pulse Ox 06/04/21 10:09 98.7 F 79 16 112/74 97 YANN Risk Score YANN Risk Score: Risk Score Odds of by 30D 0 0.1 (0.1-0.2) 1 0.3 (0.2-0.3) 2 0.4 (0.3-0.5) 3 0.7 (0.6-0.9) 4 1.2 (1.0-1.5) 5 2.2 (1.9-2.6) 6 3.0 (2.5-3.6) 7 4.8 (3.8-6.1) Discharge Plan Discharge Patient Disposition: PLACED OBSERVATION Discharge Problem: Atrial fibrillation with rapid ventricular response, Essential hypertension Prescriptions: No Action syfm-jzhen-xixvabun-lut-mv,min 1 EACH tablet 1 ea PO DAILY RF: 0 turmeric root extract 500 MG capsule 500 mg PO DAILY RF: 0 bz-2-qox-epa-fish oil-vit D3 1 EACH capsule 1 ea PO DAILY RF: 0 cyanocobalamin (vitamin B-12) [Vitamin B-12] 500 MCG tablet 2,500 mcg PO DAILY Qty: 30 RF: 0 statin guard 1 tab PO BEDTIME RF: 0 aspirin 81 mg tablet,delayed release (DR/EC) 81 mg PO EVERY OTHER DAY Qty: 90 RF: 4 loratadine 10 mg tablet 10 mg PO DAILY Qty: 90 RF: 4 kypgwylbdnmy-pqjqfiug-rdrdwl Tablet 1 tab PO QDAY RF: 0 estradiol 0.01 % (0.1 mg/gram) cream 1 g vaginal QDAY Qty: 42.5 RF: 12 losartan 50 mg tablet 50 mg PO BID Qty: 180 RF: 4 raloxifene 60 mg tablet 60 mg PO DAILY Qty: 90 RF: 4 simvastatin 40 mg tablet 40 mg PO BEDTIME Qty: 90 RF: 4 ED Provider: BRUNO CASILLAS Condition: Good Physician Progress Note: []
[2021-06-04 10:47] LABS: BORDETELLA PARAPERTUSSIS (PCR) NOT DETECTED (NOT DETECT); BORDETELLA PERTUSSIS (PCR) NOT DETECTED (NOT DETECT); CHLAMYDIA PNEUMONIAE (PCR) NOT DETECTED (NOT DETECT); CORONAVIRUS 229E (PCR) NOT DETECTED (NOT DETECT); CORONAVIRUS HKU1 (PCR) NOT DETECTED (NOT DETECT); CORONAVIRUS NL63 (PCR) NOT DETECTED (NOT DETECT); CORONAVIRUS OC43 (PCR) NOT DETECTED (NOT DETECT); HUMAN METAPNEUMOVIRUS (PCR) NOT DETECTED (NOT DETECT); HUMAN RHINOVIRUS/ENTEROV (PCR) NOT DETECTED (NOT DETECT); INFLUENZA B (PCR) NOT DETECTED (NOT DETECT); MYCOPLASMA PNEUMONIAE (PCR) NOT DETECTED (NOT DETECT); PARAINFLUENZA VIRUS 1 (PCR) NOT DETECTED (NOT DETECT); PARAINFLUENZA VIRUS 2 (PCR) NOT DETECTED (NOT DETECT); PARAINFLUENZA VIRUS 3 (PCR) NOT DETECTED (NOT DETECT); PARAINFLUENZA VIRUS 4 (PCR) NOT DETECTED (NOT DETECT); RESPIRATORY SYNCYTIAL V (PCR) NOT DETECTED (NOT DETECT); SARS_COV_2 (PCR) NOT DETECTED (NOT DETECT)
[2021-06-04] MEDS ORDERED: CARDIZEM INJ IVP STA (10:53)
[2021-06-04 11:01] LABS: BASOPHILS % (AUTO) 0.5 % (0.0-3.0); EOSINOPHILS # (AUTO) 0.1 K/ul (0.0-0.7); EOSINOPHILS % (AUTO) 1.4 % (0.0-7.0); HEMATOCRIT 43.8 % (37.0-47.0); HEMOGLOBIN 14.9 g/dl (12.0-16.0); IMMATURE GRANULOCYTE % (AUTO) 0.3 % (0.0-5.0); LYMPHOCYTES # (AUTO) 2.5 K/uL (0.60-3.4); LYMPHOCYTES % (AUTO) 32.2 (10.0-50.0); MEAN CORPUSCULAR HEMOGLOBIN 33.1 pg (27.0-31.0); MEAN CORPUSCULAR VOLUME 97.3 fl (81.0-99.0); MONOCYTES # (AUTO) 0.8 K/uL (0.4-2.0); MONOCYTES % (AUTO) 9.8 (0-10); NEUTROPHILS # (AUTO) 4.3 K/ul (2.0-6.9); NEUTROPHILS % (AUTO) 55.8 % (42.2-75.2); PLATELET COUNT 329 10^3/uL (140-440); RDW COEFFICIENT OF VARIATION 13.3 % (11.6-14.8); WHITE BLOOD COUNT 7.77 K/ul (4.6-10.2)
[2021-06-04] MEDS ORDERED: ELIQUIS PO STA (11:04)
[2021-06-04 11:11] LABS: ALANINE AMINOTRANSFERASE 21.5 U/L (0-35); ALBUMIN 4.08 g/dL (3.5-5.0); ALKALINE PHOSPHATASE 65.3 U/L (53-141); BILIRUBIN,TOTAL 0.67 mg/dL (0.2-1.3); BLOOD UREA NITROGEN 12.5 mg/dL (7-17); CALCIUM 9.12 mg/dL (8.4-10.2); CARBON DIOXIDE 23.3 mmol/L (22-30.0); CREATININE 0.83 mg/dL (0.60-1.30); GLUCOSE 102.5 mg/dL (74-106); POTASSIUM 4.51 mmol/L (3.5-5.1); SODIUM 138.3 mmol/L (134.5-145); TOTAL PROTEIN 6.98 g/dL (6.3-8.2)
--- NOTE | 2021-06-04 11:13 | DI ---
EXAM: Chest one view HISTORY: Chest pain COMPARISON: 12/06/2016 TECHNIQUE: Single view of the chest was performed FINDINGS: Normal heart size. Normal mediastinal contour. Small hiatal hernia. Clear lungs. No ple ural effusion or pneumothorax. No acute osseous abnormality. IMPRESSION: No acute cardiopulmonary process.
[2021-06-04] MEDS: CARDIZEM 125 MG in SODIUM CHLORIDE 100 ML IV SCH (11:19)
[2021-06-04 11:25] LABS: TROPONIN I < 0.012 ng/ml (0.0000-0.120)
[2021-06-04 11:34] LABS: PARTIAL THROMBOPLASTIN TIME 24.5 SEC (23.9-40.0); PROTHROMBIN TIME 9.9 SEC (9.3-11.0)
[2021-06-04 11:45] LABS: ADENOVIRUS (PCR) NOT DETECTED (NOT DETECT)
[2021-06-04 14:11] VITALS: BMI 27.1
[2021-06-04] MEDS ORDERED: LOVENOX SUBCUT SCH (16:30)
[2021-06-04] MEDS ORDERED: CARDIZEM CD PO SCH (16:30)
--- NOTE | 2021-06-04 16:45 | PCM ---
Chief Complaint Chief Complaint: Afib w/ RVR SOA chest heaviness. History of Present Illness History of Present Illness: 80 yo CF contacted clinic this am with left sided heaviness, home BP elevation and chest discomfort. She was directed to ER and presented to [facility] and met with Dr. Vaughn around 1030 this am. She informed ER that she had sudden onset of chest palpitations, heaviness, an dupon arrival to ER was placed on campus monitor and noted increase from 79 to 170 BPM. Denied CP or MAZA to ER team. Physical examination emergency room was completed and showed no signs or symptoms of distress or pain. Mild ill appearance. Respiratory was patent with normal lung and breath sounds. Cardiovascular pulses were listed as normal no murmur she did have irregular rhythm and tachycardia was noted. EKG completed at 1025 this morning with tachycardia atrial fibrillation with RVR. ER contacted me at 1215 with information about the patient. Laboratory assessment showed white blood cell count of 7.77, hemoglobin of 14.9, platelets of 329 which are all normal. CMP showed sodium of 130.3, potassium 4.51, chloride 108, BUN 12.5, creatinine 23, GFR 66, glucose one 2.5, calcium 9.12, AST 30, ALT 21.5, alk phos 65.3. Troponin #1 was less than 0.12. Bio fire PCR was negative for morejon or other respiratory pathogens. PT 9.9, INR 0.93, PTT 24.5. D-dimer was 370 and less than 500 suggesting low likelihood of pulmonary embolism based on Wells criteria. [id number]-Addb score of at least 4 points suggesting stroke risk of the least 4.8 %/year. Any score greater than 2 is moderate to high risk and should otherwise be a good anticoagulant candidate.PMHX reviewed. She is a non smoker. Patient is on raloxifene, simvastatin, ASA, Losartan, using OTC tumeric, omega fish oil, MVI, claritin, vaginal estradiol, and b12. The patient was started on a Cardizem drip by the ER was controlled. She was started on Eliquis 5 mg and we will continue this at twice per day dosing. I have agreed to admit patient to overnight observation with titration of the Cardizem. It is important to note that the patient is on simvastatin and this can have a significant interaction with Cardizem. I have changed the simvastatin to Crestor to provide additional cardiac benefit but also to reduce interaction with the Cardizem. Cardizem has known effect with simvastatin: Simvastatin may decrease the serum concentration of Cardizem and Cardizem may increase the serum concentration of simvastatin and it is recommended to avoid concurrent use of these 2 agents when possible. Rosuvastatin does not have the same interaction and thus I will change this medicine today. I was contacted by Jessica the inpatient nurse at 3:17 PM today. The Cardizem drip had been stopped at 1454 as the patient's blood pressure was 116/61 and heart rate was 94-1 18 per telemetry. Vitals in the emergency room showed temperature of 98.7, pulse of 79, respiratory rate of 16 blood pressure 112/74 and pulse ox of 97. Again the first troponin was negative, EKG showed A. fib which is new with RVR. She was started on a Cardizem drip prior to discussion today. The Cardizem drip was stopped by the time I saw the patient as heart rate has been stable and controlled. The patient's next troponin should be at approximately 4-5 o'clock tonight. We will monitor this and we will check a third troponin about 6 to 8 hours after that. Chest x-ray reviewed and she has no acute cardiopulmonary process. The patient was seen in room 104 with in room. We discussed her new onset A. fib. Minimal coffee/caffeine intake. She feels fine now. She has no complaints at time of evaluation. No reported headache, no fever, no vision changes, no loss of taste/smell, No new URI symptoms, reviewed allergy symptoms, no cough/congestion/wheezing/SOA, No CP, no reported fatigue, no abd pain, no N/V/D, no constipation, no changes in urination/stooling, no new MSK pain except as above, no recent injuries except as listed above. Falls reviewed and listed above. We discussed her earlier symptoms and they are listed below. REVIEW OF SYMPTOMS: (Positives bolded) General: weight loss, fever, chills, night sweats, fatigue, appetite loss HEENT: blurry vision, eye pain, eye discharge, dry eyes, decreased vision, sore throat tinnitus, bloody nose, hearin gloss, sinus pain/pressure, ear pain/ pressure. Respiratory: shortness of breath, cough, hemoptysis, wheezing, pleurisy, Cardiovascular: chest pain, PND, palpitation, edema, orthopnea, syncope, swelling of extremities Gastro: Nausea, vomiting, diarrhea, hematemesis, abdominal pain, constipation Genito: hematuria, dysuria, glycosuria, hesitancy, frequency, incontinence Musckelo: Arthralgia (CHRONIC) , myalgia, muscle weakness, joint swelling, NSAID use Skin: rash, pruritis, sores, nail changes, skin thickening, change in wart/mole, itching, rash, new lesions, pruritus, nail changes Neuro: Migraine, numbness, ataxia, tremor, vertigo, weakness, memory loss, Irritability, dizziness Endocrine: excessive thirst, polyuria, cold intolerance, heat intolerance, goiter Psychiatric: depression, anxiety, anti-depressants, alcohol abuse, drug abuse, insomnia, change in sleep pattern and mood changes Heme/lymph: easy bruising, bleeding gums, blood clots, swollen glands, lymphedema, Allergic/immune: allergic rhinitis, hay fever, asthma, hives Vital Signs - 24 hr 06/04/21 10:09 06/04/21 13:44 06/04/21 14:54 Temperature 98.7 F 98.4 F 97.8 F Pulse Rate 79 52 L 93 H Respiratory Rate 16 20 17 Blood Pressure 112/74 116/61 O2 Sat by Pulse Oximetry 97 98 95 06/04/21 15:17 06/04/21 16:00 06/04/21 16:45 Temperature 97.8 F Pulse Rate 100 H 100 H Respiratory Rate 17 Blood Pressure 122/80 122/80 O2 Sat by Pulse Oximetry 96 96 Constitutional: Appearance-No acute distress, Consistent with stated age. Orientation- Oriented x 3, alert Gait-Normal pace, normal arm movement. Build and Nutrition-[normal] General- Patient is pleasant and cooperative with the interview and exam. Integumentary: General-No rashes, ulcers or lesions. Palpation- Normal skin moisture/turgor. Skin is warm to touch, appropriate. Capillary refill is normal bilateral Upper and lower extremity. Head/Neck: Head- normocephalic and atraumatic. Neck- without visible/palpable lumps or pulsations. Palpation- No bony tenderness about head/neck along frontal, occipital, temporal, parietal, mastoid, jawline, zygoma, orbit or any other location. NO temporal artery tenderness. No TMJ tenderness. Neck Supple. Thyroid-No thyromegaly, no nodules Eye: Bilaterally PERRLA, EOMI. No discharge. Upper and lower eyelids are normal. Sclera/conjunctiva normal without discharge. Cornea is normal and clear. Lens is normal. Eyeball appears normal. No ciliary flushing, no conjunctival injection. ENMT: Pinna- normal without tenderness or erythema. External auditory canal Left- normal without erythema or discharge, no excessive cerumen. External auditory canal Right-normal without erythema or discharge, no excessive cerumen. TM left- [place]o/pearly, normal light reflex and anatomy TM Right- [place]o/pearly, normal light reflex and anatomy Hearing Assessment-normal to conversational speech. Nose and sinus- No sinus tenderness along frontal/maxillary region. External appearance normal and midline. Nares- bilateral quiet airflow, no discharge. Nasal mucosa- No bleeding noted and no ulcerations observed. [place], moist. Turbinates non boggy. Lips- normal color, moist without cracks/lesions Oral Cavity/Palate- hard/soft palate intact without lesions, oral mucosa pink and moist. Dentition assessed. Tongue normal midline. Oropharynx- no pharyngeal erythema, Uvula midline. No post nasal drip. No exudate. Salivary glands- Non tender to palpation CHEST/LUNG: Inspection- symmetric chest wall no pectus deformity. Normal effort, no distress, no use of accessory muscles. Palpation- nontender sternum, ribline. No abnormal pulsations. Auscultation- Breath sounds normal throughout all lung nicholson. Normal tracheal sounds, Normal bronchial sounds overlying sternum, Bronchovessicular sounds normal between scapulae posteriorly, Normal vessicular breath sounds heard throughout periphery. Lungs are clear today. Adventitious sounds- No wheezes, rales, rhonchi. CARDIOVASCULAR: Carotid artery- normal, no bruits or abnormal pulsations. Palpation/Percussion- Normal PMI, no palpable thrillAuscultation- Irregulary irregular rate and rhythm. No murmur noted in sitting, supine positions. Extremities- no digital clubbing, cyanosis, edema, increased warmth. ABDOMEN: Inspection- normal and no visible pulsations. Normal contour. Auscultation- Bowel sounds normal, no abdominal bruits. Palpation/Percussion- soft, non-tender, no rebound tenderness, no rigidity (guarding), no jar tenderness, no masses. Liver-no hepatomegaly, Spleen no splenomegaly, Hernias - none. Rectal not examined. Peripheral Vascular: Upper extremity Left- Normal temperature with pink nailbeds and no ulcerations. Upper extremity Right- Normal temperature with pink nailbeds and no ulcerations. Lower extremity- Normal temperature with pink nailbeds and no ulcerations. DP pulses 2+ bilaterally. Pedal hair intact. Normal capillary refill. Edema- No edema. Musculoskeletal: Generalized-No generalized swelling or edema of extremities, no digital clubbing or cyanosis, neurovascularly intact all four extremities. Upper extremity- Symmetrical posture. No visible deformity. Normal sensation along medial and lateral upper extremity proximally and distally. NO tenderness overlying shoulder, lateral/medial epicondyle. Recovery Collector 5/5 and strength 5/5 bilateral UE. Elbow palpated, no tenderness overlying olecranon. Normal supination, pronation to active/passive ROM and to resisted rotation. Bicep insertion/tricep insertion appear normal without obvious pathology. Rotator cuff evaluated and intact. Normal wrist ROM bilaterally. Normal hand movement, intrinsic muscles of hands normal. No tenderness to palpation of hands/wrists/elbows. Lower extremity- Hip: Not tender to palpation, no pain, no swelling, edema or erythema of surrounding tissue, normal strength and tone. Normal appearing hip ROM bilaterally without pain. Knee: Knee ROM normal. No tenderness overlying trochanters, no tenderness about patella, quad tendon, patellar tendon. No tenderness at tibial tuberosity. Ankle: normal ROM not tender to palpation along medial/lateral malleolus. Foot: Normal movement of toes, no tenderness bilateral feet/toes. Normal foot type. Spine/Ribs- No deformities, masses or tenderness, no known fractures, normal strength, Normal ROM. Normal stability No tenderness along C/T/L spine. Normal appearing ROM about spine. Neurological: General- Moves all 4 extremities symmetrically. Symmetrical face and body posture. Cranial nerves- individually evaluated II-XII and intact. PERRLA, Normal EOMI, visual/special senses appear intact, Face is symmetrical and normal sensation/movement, normal tongue, normal strength/posture of neck musculature. Reflexes- intact with DTR 2+ patellar, Achilles, bicep, brachial, tricep. Ankle clonus normal with 2 beats. Strength- 5/5 bilateral UE and LE. Soft touch- intact bilateral UE and LE. Temperature sensation- intact bilateral UE and LE. Neuropsych: Oriented- Person, place, time. (AAOx3), Mood/affect- normal and congruent. Able to articulate well. Speech-Normal speech, normal rate, normal tone, normal use of language, volume and coherence. Thought content- normal with ability to perform basic computations and apply abstract thought/reason. Associations- intact, no SI/HI, no hallucinations, delusions, obsessions. Judgment/insight- Appropriate. Memory-Recall intact, remote and recent memory intact. Knowledge- Age appropriate fund of knowledge, concentration and attention span normal. Lymphatic: Head/Neck- normal size and non tender to palpation. Axillary- normal size and non tender to palpation. Femoral and Inguinal- normal size and non tender to palpation. Allergies Allergies Allergy/AdvReac Type Severity Reaction Status Date / Time Penicillins Allergy RASH Verified 06/04/21 10:14 [facility] Medical History (Updated 06/05/21 @ 07:58 by ELODIA WHITTAKER) Atrial fibrillation with RVR Essential hypertension Hyperlipidemia Measles Memory change Mumps Need for immunization against influenza Osteopenia Seasonal allergies Varicella Surgical History (Updated 06/05/21 @ 07:42 by ELODIA WHITTAKER) History of cholecystectomy History of hysterectomy History of lumpectomy of left breast History of phacoemulsification of cataract of both eyes with intraocular lens implantation Family History (Updated 06/04/21 @ 14:31 by JESSICA CORREA RN) Mother No problems noted. FATHER No problems noted. SISTER No problems noted. BROTHER Arrhythmia Social History (Updated 06/04/21 @ 14:31 by JESSICA CORREA RN) Smoking and tobacco status: Never smoker Passive smoking exposure: No Second hand smoke exposure: No Smoking risk assessment performed: Yes Alcohol intake: never Counseling given: No Substance use type: does not use Counseling given: No Special hyun needs: No Household members: spouse Housing: house Lives independently: Yes Daycare: no daycare penitentiary: No Sexually active: Yes Do you think of yourself as: straight/heterosexual Current gender identity: female Seatbelt use: always Drives intoxicated or rides with intoxicated driver retraining instructor: No Medications Medications: Medications Generic Name Dose Route Start Last Admin Trade Name Freq PRN Reason Stop Dose Admin Diltiazem HCl 125 mg/ Sodium 125 mls @ 5 mls/hr 06/04/21 11:00 06/04/21 15:21 Chloride IV 0 mg/hr TITRATION DALTON 0 mls/hr Titration Protocol 5 MG/HR Sodium Chloride 1 syr 06/04/21 10:36 06/04/21 11:20 0.9% Sodium Chloride 10 Ml Disp.Syrin IVF 1 syr PRN PRN Administration To flush IV Body Composition Height: 5 ft 6 in Weight: 167 lb 15.876 oz Body Mass Index (BMI): 27.1 Vital Signs Temperature: 97.8 F Pulse Rate: 100 Respiratory Rate: 17 Blood Pressure: 122/80 O2 Sat by Pulse Oximetry: 96 Lab/Tests/Diagnostic Imaging Lab/Tests/Diagnostic Imaging: Lab Review 06/04/21 06/04/21 06/04/21 10:40 10:56 10:56 WBC 7.77 RBC 4.50 Hgb 14.9 Hct 43.8 MCV 97.3 MCH 33.1 H MCHC 34.0 RDW Coeff of Fernando 13.3 Plt Count 329 Immature Gran % (Auto) 0.3 Neut % (Auto) 55.8 Lymph % (Auto) 32.2 [place] % (Auto) 9.8 Eos % (Auto) 1.4 Baso % (Auto) 0.5 Neut # (Auto) 4.3 Lymph # (Auto) 2.5 [place] # (Auto) 0.8 Eos # (Auto) 0.1 Baso # (Auto) 0.0 Immature Gran # (Auto) 0.0 PT INR APTT Sodium 138.3 Potassium 4.51 Chloride 108.0 H Carbon Dioxide 23.3 Anion Gap 11.51 BUN 12.5 Creatinine 0.83 Estimated GFR (MDRD) 66.00 BUN/Creatinine Ratio 15.06 Glucose 102.5 Calcium 9.12 Total Bilirubin 0.67 AST 30.0 ALT 21.5 Alkaline Phosphatase 65.3 Troponin I < 0.012 Total Protein 6.98 Albumin 4.08 Globulin 2.90 Albumin/Globulin Ratio 1.40 D-Dimer Adenovirus (PCR) Not detected B. pertussis DNA (PCR) Not detected B.parapertussis DNA PCR Not detected C. pneumoniae DNA (PCR) Not detected Coronavirus OC43 (PCR) Not detected Coronavirus HKU1 (PCR) Not detected Coronavirus 229E (PCR) Not detected Coronavirus NL63 (PCR) Not detected Human Metapneumovir PCR Not detected Influenza Type A (PCR) Not detected Influenza B (RT-PCR) Not detected M. pneumoniae (PCR) Not detected Parainfluenza 1 (PCR) Not detected Parainfluenza 2 (PCR) Not detected Parainfluenza 3 (PCR) Not detected Parainfluenza 4 (PCR) Not detected RSV (PCR) Not detected Entero/Rhino (PCR) Not detected SARS-CoV-2 (PCR) Not detected 06/04/21 06/04/21 11:11 11:11 WBC RBC Hgb Hct MCV MCH MCHC RDW Coeff of Fernando Plt Count Immature Gran % (Auto) Neut % (Auto) Lymph % (Auto) [place] % (Auto) Eos % (Auto) Baso % (Auto) Neut # (Auto) Lymph # (Auto) [place] # (Auto) Eos # (Auto) Baso # (Auto) Immature Gran # (Auto) PT 9.9 INR 0.93 APTT 24.5 Sodium Potassium Chloride Carbon Dioxide Anion Gap BUN Creatinine Estimated GFR (MDRD) BUN/Creatinine Ratio Glucose Calcium Total Bilirubin AST ALT Alkaline Phosphatase Troponin I Total Protein Albumin Globulin Albumin/Globulin Ratio D-Dimer 370.10 Adenovirus (PCR) B. pertussis DNA (PCR) B.parapertussis DNA PCR C. pneumoniae DNA (PCR) Coronavirus OC43 (PCR) Coronavirus HKU1 (PCR) Coronavirus 229E (PCR) Coronavirus NL63 (PCR) Human Metapneumovir PCR Influenza Type A (PCR) Influenza B (RT-PCR) M. pneumoniae (PCR) Parainfluenza 1 (PCR) Parainfluenza 2 (PCR) Parainfluenza 3 (PCR) Parainfluenza 4 (PCR) RSV (PCR) Entero/Rhino (PCR) SARS-CoV-2 (PCR) IMAGING: CXR: No acute process. Orders Category Date Time Status PLACE PATIENT OBSERVATION .TO MEDSURG (MONITORED BED ADMISSION 06/04/21 12:25 Active ) ECHOCARDIOGRAM 2D-M MODE Routine CARDIO 06/04/21 12:29 Ordered EKG-(ED ONLY) Stat CARDIO 06/04/21 10:36 Completed OXYGEN Routine CARDIO 06/04/21 10:36 Completed OXYGEN Routine CARDIO 06/04/21 12:29 Active ACTIVITY .BR with BRP CARE 06/04/21 12:29 Active BLOOD GLUCOSE MONITORING 0630,1100,1700,2100 CARE 06/04/21 12:30 Active INTAKE & OUTPUT Q8HR CARE 06/04/21 12:29 Active TELEMETRY MONITORING TELE CARE 06/04/21 12:26 Active VITAL SIGNS Q1HR CARE 06/04/21 12:29 Active REGULAR DIET DIETARY 06/04/21 Lunch Ordered IV [ED IV/MEDIPORT/POWERPORT] .ONCE EMERGENCY 06/04/21 10:36 Active CBC W/ AUTO DIFF Stat LAB 06/04/21 10:56 Completed CMP [COMPREHENSIVE METABOLIC PANEL] Stat LAB 06/04/21 10:56 Completed D-DIMER Stat LAB 06/04/21 11:11 Completed PARTIAL THROMBOPLASTIN TIME Stat LAB 06/04/21 11:11 Completed PT WITH INR Stat LAB 06/04/21 11:11 Completed RESPIRATORY PANEL 2.1 (PCR) Stat LAB 06/04/21 10:40 Completed TROPONIN I Q8H LAB 06/04/21 18:30 Ordered TROPONIN I Q8H LAB 06/05/21 02:30 Ordered TROPONIN I Stat LAB 06/04/21 10:56 Completed UA [URINALYSIS C & S IF INDICATED] Stat LAB 06/04/21 10:45 Uncollected 0.9 % Sodium Chloride [Saline Flush] MEDS 06/04/21 10:36 Active 1 syr IVF PRN PRN Apixaban [Eliquis] MEDS 06/04/21 11:04 Discontinued 5 mg PO ONCE STA Diltiazem HCl [Cardizem Inj] MEDS 06/04/21 10:53 Discontinued 15 mg IVP ONCE STA Diltiazem HCl [Cardizem] 125 mg MEDS 06/04/21 11:00 Active 0.9 % Sodium Chloride [Sodium Chloride] 100 ml IV TITRATION RESUSCITATION STATUS Routine OTHERS 06/04/21 12:29 Completed RESUSCITATION STATUS Routine OTHERS 06/04/21 14:10 Ordered CHEST, 1V AP ONLY Stat RADS 06/04/21 10:36 Completed Medications Generic Name Dose Route Start Last Admin Trade Name Freq PRN Reason Stop Dose Admin Diltiazem HCl 125 mg/ Sodium 125 mls @ 5 mls/hr 06/04/21 11:00 06/04/21 15:21 Chloride IV 0 mg/hr TITRATION DALTON 0 mls/hr Titration Protocol 5 MG/HR Sodium Chloride 1 syr 06/04/21 10:36 06/04/21 11:20 0.9% Sodium Chloride 10 Ml Disp.Syrin IVF 1 syr PRN PRN Administration To flush IV Discontinued Medications Generic Name Dose Route Start Last Admin Trade Name Freq PRN Reason Stop Dose Admin Apixaban 5 mg 06/04/21 11:04 06/04/21 11:17 Apixaban 5 Mg Tab PO 06/04/21 11:05 5 mg ONCE STA Administration Diltiazem HCl 15 mg 06/04/21 10:53 06/04/21 11:18 Diltiazem Hcl Inj 25 Mg/5 Ml Vial IVP 06/04/21 10:54 15 mg ONCE STA Administration Assessment (1) Atrial fibrillation with rapid ventricular response: Status: Acute Code(s): I48.91 - Unspecified atrial fibrillation SNOMED Code(s): 050870225032686 (2) Essential hypertension: Status: Acute Code(s): I10 - Essential (primary) hypertension SNOMED Code(s): 32321786 (3) Hyperlipidemia: Status: Inactive Code(s): E78.5 - Hyperlipidemia, unspecified SNOMED Code(s): 65499171 (4) Osteopenia: Status: Inactive Code(s): M85.80 - Other specified disorders of bone density and structure, unspecified site SNOMED Code(s): 211889005 (5) Osteopenia: Status: Inactive Code(s): M85.80 - Other specified disorders of bone density and structure, unspecified site SNOMED Code(s): 565690059 Plan Plan: AFIB w/ RVR: 80-year-old female seen in the emergency room today with A. fib with RVR. I have reviewed the note from Dr. Vaughn and I have admitted the hospital to observation status to evaluate the atrial fibrillation. Patient has never had this before. Her [id number] score is at least 4 suggesting anticoagulation is needed. We have discussed that there are typically a few reasons to prevent prolonged RVR and that is to avoid any hemodynamic instability which the patient does not have at present and to avoid a tachycardia mediated cardiomyopathy. She has no pain at present, no symptoms at present and the heart rate seems to be less than 120 at this time. There is a mortality benefit in the literature regarding rate control but really not much regarding rhythm control. Typically the initial management of patients with A. fib with RVR is anticoagulation and rate control strategies. Since the patient's blood pressure is stable and overall hemodynamically stable, the patient should be able to be treated with pharmacological therapies only and does not likely require electrical cardioversion at present. I have reached out to cardiology today and talked with them about possibility of cardioversion in the next 24 to 48 hours. It was felt that without known duration of the rhythm that anticoagulation prior to electrical cardioversion would be warranted. Per the literature the optimal rate for patients with A. fib RVR is not known. The goal is a normal rate for patients that do not have this problem. It is been considered to have a resting rate of about 80 and a mild activity rate of 110 or less. Some data suggests that lenient control is noninferior to strict control. We will consider a 6-minute walk test tomorrow. Ideally keeping a rate below 110 bpm should help to prevent tachycardia mediated cardiomyopathy. I will order an echo tomorrow to evaluate for this possibility. She has been started on a calcium channel pippa drip in the emergency room. We will titrate this to effect. She has no history of heart failure and the effect of Cardizem negative inotrope he should be okay. She is not hypotensive and thus medication should be okay as well. At this time I do not think digoxin is necessary. We will evaluate echocardiogram for LV dysfunction. We will consider amiodarone as next line If rhythm control is also necessary. Home medications were reviewed. The simvastatin and the Cardizem do not ideal interactions. We will change the simvastatin over to rosuvastatin and we will continue the Cardizem. Remaining medicines can be continue to include the losartan. - Admit obs - Titrate diltiazem to rate <100 - Echocardiogram in am - NPO after midnight. - Normal diet. - Eliquis for DVT prophylaxis - Home meds reviewed. - Telemetry - Am cbc/cmp. - Trend troponin. Essential HTN: Chronic Essential HTN at goal. Good BP control is encouraged with Goal BP based on JNC 8 guidelines of <140/90 for this patient. Reviewed medications and discussed the typical first line agents to include thiazide diuretic or carl-I or ARB or CCB alone or in combo. She is on ARB. We will continue for now, may back down if needed based on BP on CCB. - Take meds as recommended. - Resume home meds for now. Hyperlipidemia: Chronic stable problem. However with interaction with simvastatin and the diltiazem, I will change to Crestor. So far, No SE reported. Continue monitoring of Lipid levels. Discussed need to take medications as prescribed. Benefits of the agents d/w patient. Discussed need to take Rx regularly as prescribed, to avoid missing doses. Medications reviewed with patient today. We discussed cessation/ continuation of medications for current problem. Needed Rx refills will be provided at d/c. Risks/benefits to current therapy discussed. Discussed recommendation from current guidelines and the support of moderate to high intensity statin. Discussed some of the major side effects typically reported can include muscle cramps and pain, kidney and liver changes and diabetes. We will monitor blood work for kidney/liver. Take Rx at night. If any muscle cramps call clinic. - Lab orders as listed below. - CMP/CBC in am Osteopenia: ON raloxifene. On estrogen. Menopause: On raloxifene. On estrogen. DVT Prophy: Eliquis 5mg BID. - I have discussed the risks and benefits of using [eliquis ] with the patient. I informed the patient of the risks associated with use of anticoagulation including but not limited to catastrophic and lifethreatening intracranial, visceral, and gastrointestinal bleeding. I discussed alternatives (Vit K inhibitors, direct thrombin inhibitors and factor Xa inhibitors) including oral Coumadin with initial LMWH and need for repeat/regular INR, oral Savaysa (Xa inhibitor) with initial LMWH x 5 days, Oral Pradaxa (thrombin inhibitor) with initial LMWH and Xarelto/Eliquis which do not require any injections. Discussed these meds have other names such as Warfarin, rivaroxaban, apixaban or edoxaban. The risks and interactions of each medication were discussed independently and compared to other anticoagulants. We reviewed proximal vs Deep DVT, PE, atrial fibrillation and discussed benefits/reasons for one over another. We discussed provoked vs unprovoked DVT and discussed some common causes of DVT. Discussed DDX today as listed. Discussed when to go to ER, caution for falls, caution for bleeding. I discussed the risks of bleeding as well as availability of reversal for each anticoagulant. After discussion of the above the patient has chosen to initiate anticoagulation. Please see order below. I am discussing/providing Rx for the anticoagulant in this patient due to efficacy and patient preference. The patient has been briefed on the risks and benefits of the agents and has voiced understanding and would like to proceed with anticoagulation. They are aware that the minimal tx course will be 3 months. If unprovoked or recurrent DVT this could be lifetime. Any tobacco should be stopped. If worsening, if fall, if injury would recommend urgent evaluation by ER. GI Prophy: None Activity: Ad ronn Diet: Normal/Routine until midnight then NPO. Code: Full Disposition: Current plan is to admit to obs status overnight to work on rate control and to anticoagulate the patient. I would like an echo tomorrow to assess the patient LV function and eval for cardiomyopathy. I have talked with Dr. Sam and will consult him/get echo for this patient. We have discussed cardioversion and will delay this process at present due to unknown duration of rhythm abberation. We will control rate with cardizem, the cholesterol meds have been adjusted. We will see back in the am. Monitor for Troponin changes. Monitor on monitor. Goal HR to be 85-100. We will adjust medications. Oral cardizem started at CD 120mg daily. Will reassess in the am. If any changs overnight, nursing will call me. Patient/ had no issues/concerns, no c/o in room. We will see again tomorrow. Total face to face time discussion with patient//nursing/ER team 70 minutes for this admission.
[2021-06-04 17:43] LABS: BILIRUBIN,URINE Negative (NEGATIVE); CLARITY,URINE Clear (CLEAR); COLOR,URINE Yellow (YELLOW); GLUCOSE, URINE (UA) Negative (NEGATIVE); KETONES,URINE 1+ (NEGATIVE); LEUKOCYTE ESTERASE ,URINE Trace (NEGATIVE); NITRITE,URINE Negative (NEGATIVE); PH,URINE 5.5 (5-9); PROTEIN,URINE Negative (NEGATIVE); URINE, BLOOD Trace-intact (NEGATIVE); UROBILINOGEN,URINE 0.2 (0.2)
[2021-06-04] MEDS: NON-FORMULARY MEDICATION (Estradiol 0.01 % (0.1 mg/gram) cream) VAGINAL SCH (17:44)
[2021-06-04 17:47] LABS: SQUAMOUS EPITHELIAL CELL,UR 0-2 (0-5); URINE RBC, MICROSCOPIC 0-2 (0-2); URINE WBC, MICROSCOPIC 0-2 (0-2)
[2021-06-04] MEDS: COZAAR PO SCH (20:51)
[2021-06-04] MEDS: CRESTOR PO SCH (20:51)
[2021-06-04] MEDS: ELIQUIS PO SCH (20:51)
[2021-06-05] MEDS: COZAAR PO SCH (08:03)
[2021-06-05] MEDS: CARDIZEM CD PO SCH ×2 (08:03→08:11)
[2021-06-05] MEDS: ELIQUIS PO SCH ×2 (08:04→20:16)
[2021-06-05] MEDS: NON-FORMULARY MEDICATION (Estradiol 0.01 % (0.1 mg/gram) cream) VAGINAL SCH ×2 (08:09→08:40)
[2021-06-05] MEDS: RALOXIFENE 60 MG PO SCH (08:10)
[2021-06-05 10:40] LABS: BASOPHILS # (AUTO) 0.1 K/uL (0-0.2); BASOPHILS % (AUTO) 0.8 % (0.0-3.0); EOSINOPHILS # (AUTO) 0.2 K/ul (0.0-0.7); EOSINOPHILS % (AUTO) 2.5 % (0.0-7.0); HEMATOCRIT 45.8 % (37.0-47.0); HEMOGLOBIN 15.2 g/dl (12.0-16.0); IMMATURE GRANULOCYTE % (AUTO) 0.3 % (0.0-5.0); LYMPHOCYTES # (AUTO) 2.6 K/uL (0.60-3.4); LYMPHOCYTES % (AUTO) 40.2 (10.0-50.0); MEAN CORPUSCULAR HEMOGLOBIN 33.3 pg (27.0-31.0); MEAN CORPUSCULAR HGB CONC 33.2 (31.8-35.4); MEAN CORPUSCULAR VOLUME 100.4 fl (81.0-99.0); MONOCYTES # (AUTO) 0.7 K/uL (0.4-2.0); MONOCYTES % (AUTO) 10.4 (0-10); NEUTROPHILS % (AUTO) 45.8 % (42.2-75.2); PLATELET COUNT 341 10^3/uL (140-440); RDW COEFFICIENT OF VARIATION 13.7 % (11.6-14.8); RED BLOOD COUNT 4.56 10^6/ul (4.20-5.40); WHITE BLOOD COUNT 6.47 K/ul (4.6-10.2)
[2021-06-05 10:55] LABS: ALANINE AMINOTRANSFERASE 21.4 U/L (0-35); ALBUMIN 4.09 g/dL (3.5-5.0); ALKALINE PHOSPHATASE 58.1 U/L (53-141); ASPARTATE AMINO TRANSFERASE 30.6 U/L (14-36); BILIRUBIN,TOTAL 0.65 mg/dL (0.2-1.3); BLOOD UREA NITROGEN 15.1 mg/dL (7-17); CALCIUM 9.13 mg/dL (8.4-10.2); CARBON DIOXIDE 26.7 mmol/L (22-30.0); CHLORIDE 108.7 mmol/L (98-107); CREATININE 0.91 mg/dL (0.60-1.30); GLUCOSE 110.1 mg/dL (74-106); POTASSIUM 4.25 mmol/L (3.5-5.1); SODIUM 142.5 mmol/L (134.5-145); TOTAL PROTEIN 7.14 g/dL (6.3-8.2)
[2021-06-05 11:05] LABS: TROPONIN I 0.015 ng/ml (0.0000-0.120)
[2021-06-05] MEDS ORDERED: LANOXIN IVP ONE (11:56)
[2021-06-05] MEDS: CARDIZEM 125 MG in SODIUM CHLORIDE 100 ML IV SCH (11:59)
--- NOTE | 2021-06-05 12:02 | ECHO2D ---
Date of Exam: 06/05/2021 Ordering Physician: DR. ZEN HAYDEN Room #: 104 Reason for Echo: NEW ONSET ATRIAL FIBRILLATION, HYPERTENSION M-Mode Normal Adult Results LV Dimensions Normal Adult Results AoV Opening excursions >1.6 >1.6 LVEDD-base- 3.5-5.8 5.4 Ao root dimensions 2.0-3.7 3.3 LVESD-base- 3.1-4.6 L. Atrium dimensions 1.9-3.8 4.6 Post. Wall thickness 0.8-1.1 1.2 IV septum (thickness) 0.7-1.2 1.4 Post. Wall excursion 0.72-1.3 NORMAL Septal motion 0.2 Systolic motion R. Ventricular cavity 1.5-2.0 NORMAL LVEF 60% 40% Paradoxical septal wall motion NORMAL 2-D : HYPOKINETIC SEPTAL WALL--ENLARGED LEFT ATRIAL CAVITY--NORMAL VALVES--NO EFFUSION, NO THROMBUS, NORMAL LEFT VENTRICLE SIZE M-MODE: MV: NORMAL AV: NORMAL TV: NORMAL PV: CHAMBER SIZE: ENLARGED LEFT ATRIAL SIZE WALL MOTION: HYPOKINETIC SEPTAL WALL PERICARDIUM: NORMAL INTERPRETATION: 1. LEFT VENTRICLE HYPERTROPHY 2. ENLARGED LEFT ATRIAL CAVITY (4.6 CM) 3. HYPOKINETIC SEPTAL WALL EJECTION FRACTION 40% 4. NORMAL VALVES MTDD
--- NOTE | 2021-06-05 14:27 | CONS ---
DATE OF CONSULTATION: 06/05/21 REASON FOR CONSULTATION: Atrial fibrillation with rapid ventricular response. HISTORY OF PRESENT ILLNESS: 80-year-old white female has been hospitalized through the emergency room with feeling of heaviness on the left side of chest and back. Back bones were achy. The patient says that she woke up with this type of feeling and she came to the emergency room. At that time she was noticed to have atrial fibrillation with rapid ventricular response. The patient was started on Cardizem drip. Rate had already slowed down to 110/min. After being in the emergency room for less than an hour, the patient said the symptoms had subsided and she has been practically asymptomatic ever since then. I examined this patient in the morning and the patient has been practically asymptomatic. She doesn't have even feeling of palpitations. REVIEW OF SYSTEMS: CONSTITUTIONAL: No night sweats. No fatigue, malaise, lethargy. No fever or chills. HEENT: Eyes: No visual changes. No eye pain. No eye discharge. ENT: No sinus drainage. No epistaxis. No sinus pain. No sore throat. No odynophagia. No ear pain. No congestion. RESPIRATORY: No cough, no congestion. No hemoptysis. No shortness of breath. CARDIOVASCULAR: No angina symptoms. No CHF symptoms. No atypical chest pain for CAD. No palpitations. No orthopnea. GASTROINTESTINAL: No abdominal pain. No nausea or vomiting. No diarrhea or constipation. No hematemesis. No hematochezia. GENITOURINARY: No urgency. No frequency. No dysuria. No hematuria. No obstructive symptoms. No discharge. No pain. No significant abnormal bleeding. MUSCULOSKELETAL: No musculoskeletal pain. No joint swelling. NEUROLOGICAL: No headache. No neck pain. No syncope. No seizures. No dizziness. PSYCHIATRIC: Not anxious. No depression. No suicidal thoughts. No homicidal thoughts. SKIN: No rash. No lesions. No wounds. ENDOCRINE: No unexplained weight loss. No weight gain. HEMATOLOGIC/LYMPHATIC: No anemia. No purpura. No petechiae. No prolonged or excessive bleeding. No palpable lymph nodes. PAST MEDICAL HISTORY: Significant past history of hypertension and dyslipidemia for which she has been treated for several years. No past history of stroke or MA. SOCIAL/PERSONAL/FAMILY HISTORY: Nonsmoker. No alcohol abuse. PHYSICAL EXAMINATION: GENERAL: The patient looks better than her stated age. She is oriented to time, place and person. VITAL SIGNS: Pulse 100/min, respiratory rate 15, blood pressure 112/74. Oxygen saturation 97% on room air. Height 5'6", weight 167 lbs. BMI 27. HEENT: Head normocephalic, atraumatic. Eyes: Extraocular muscles are intact. Pupils are equal, round and reactive to light and accommodation. Ears: No lesions. Nose appeared normal. Throat: No exudate or erythema. NECK: Supple. No JVD, no carotid bruit. No lymphadenopathy or thyromegaly. LUNGS: Clear to auscultation. Percussion note normal. Chest symmetrical. HEART: Auscultation S1, S2, no S3. No murmur. Heart sounds irregularly irregular. Apical rate close to 120/min. No cyanosis or clubbing. No ascites. Pulses: Dorsalis pedis and posterior tibial pulses +2 bilaterally. Radial pulses equal bilaterally. ABDOMEN: Soft. Nontender. Bowel sounds active. No CVA tenderness. No mass felt. EXTREMITIES: No pedal edema. Full range of motion of all extremities, equal. NEUROLOGIC/MOLD CHECKER: Normal. No focal deficit. Cranial nerves II through XII are grossly intact. No headache, no double vision or headache. SKIN: Not dry. Intact. Turgor - normal. LYMPHATIC: No palpable lymph nodes/no lymphedema. MUSCULOSKELETAL: Normal joints with no swelling. Muscle tone is normal. LABS: Hemoglobin 14, hematocrit 43, WBC 7,700, normal differential. Creatinine 0.8, BUN 12, potassium 4.5. Troponin negative. CK-MB negative which was done in the morning. GFR 66 cc/min. T4, TSH pending. EKG - rapid ventricular response. ST-T wave changes nonspecific. Telemetry strips examined. The patient is in atrial fib with rate of 110/min. Echocardiogram was done this morning which showed LVH with enlarged left atrial cavity which is 4.5 cm. Hypokinetic septal wall with ejection fraction 40%. LV cavity size is normal. Valvular structures are normal. ASSESSMENT: 1. ATRIAL FIBRILLATION WITH RAPID VENTRICULAR RESPONSE. [id number] SCORE = 4. 2. HISTORY OF HYPERTENSION. 3. HISTORY OF DYSLIPIDEMIA. RECOMMENDATIONS/PLAN: 1. Discuss with the attending physician. Agreed with Cardizem of 240 mg given this morning. 2. Telemetry. 3. Weight control, will use Lanoxin 0.25 IV now and may use another dose by three or four o'clock. 4. Will wait for oral Cardizem response. 5. Agree with holding Losartan for now as systolic blood pressure had dropped to 90 to 100, starting to come up. 6. Will use Betablocker to control the rate better in case the systolic blood pressure permits us to do that. 7. Agreed with Eliquis 5 mg twice a day. 8. Discussed about Eliquis and the side effects like GI bleed, intracranial bleed, not to take any nonsteroidal antiinflammatory. 9. The patient was educated about atrial fib, about the medications. The patient's had atrial fib and was cardioverted, there are a few things about treatment part. ADDENDUM: The patient has been in atrial fibrillation with rapid ventricular response for the past 24 hours. She is practically asymptomatic considering the duration of atrial fibrillation with rapid ventricular response without any symptoms of coronary insufficiency or CHF. The patient doesn't seem to have significant coronary artery disease. Echocardiogram hasn't showed any evidence of any thrombus or thrombi in the left atrium or left ventricle. Again, primary goal would be to control the ventricular rate from 80 to 100, maybe with the help of beta pippa along with Cardizem. If the patient doesn't go into sinus rhythm, may need cardioversion prior to that, she may need transesophageal echocardiogram. This could be done in the next 2 to 3 weeks. Thank you for referral, will follow. FRANNY
--- NOTE | 2021-06-05 18:18 | PCM.PROG ---
Date Seen by Provider: 06/05/21 Time Seen by Provider: 17:30 Subjective: 80-year-old female hospital day #2. Patient was admitted on June 04, 2021 with atrial fibrillation with RVR, new onset. The patient was started on Cardizem and has had to have a Cardizem drip. Initial evaluation of patient today was completed at 7:00. She was seen again by me at 1730. Patient remains afebrile over the last 24 hours. Heart rate today 102, 109, 104, 103, 84, 92, 103, 112, 128, 67, 120, 66, 66. Blood pressure today have been 108/54, 113/81, 90/52, 111/82, 110/69, 96/68, 119/90, 106/66, 125/70. Patient's respiratory rate has been between 16 and 18, stable, unlabored and O2 saturations have been 95 through 98% on room air. The patient has been on remote telemetry and was in A. fib all the way up until 1415 on June 05 when she converted back to sinus rhythm after a single dose of Lanoxin given at 1229 today. The patient's cholesterol medications were changed last night from simvastatin to rosuvastatin to better interact with diltiazem. I stopped her p.m. dose of losartan last night and after discussion with cardiology today we will stop her a.m. dose of losartan as well. Due to her rate being elevated today I did increase the Cardizem CD from 120 mg daily to 240 mg daily. The patient had an echocardiogram today just before noon. There was noted a hypokinetic septal wall, enlarged left atrial cavity no effusion, no thrombus, normal left ventricular size, valves were normal. Labs: CBC completed showed white blood cell count 6.47, hemoglobin 15.2, platelets of 341. She does have a MCV that is elevated at 100.4. This seems to have been a chronic problem back to at least May 2019.Chemistry panel today showed normal sodium 142.5, potassium 4.25, BUN 15.1, creatinine 0.91, glucose 110.1. I did notice that she had a doubling of her troponin from last night at 1852 to 02 20 this morning. She went from 0.01 5.030. I have ordered another test in at 1030 this morning and I dropped back down to previous level of 0.015. Dr. Sam with cardiology has been by to see the patient today. I appreciate his consult/echo and we did have a discussion of the patient care this afternoon. NT proBNP was ordered and came back at 2420. Observation Narratives/Nurse summary: I was notified June 04 at 2025 of patient's blood pressure 142/92 with heart rate greater than 1 30-1 40 we resume the Cardizem drip and will check overnight into the a.m. Goal was to titrate to heart rate of less than 100 ideally 85- 100. Eliquis order had been given as a single order and I went ahead and ordered this as a twice daily dosing schedule. New order was placed by me. June 04 at 2100 patient resting in bed without difficulty telemetry showed A. fib with RVR continued Cardizem drip was infusing at 5 mill per hour.At 2200 patient got up to go to the bathroom independently, no distress noted no complaints no issues. Cardizem drip continued at \5 mL/h. At 2318 patient resting quietly in bed lights off no respiratory distress no issues telemetry in place with continued A. fib with RVR heart rate between 90 and 100 no chest pain no shortness of breath, no dyspnea. June 05 at 01 100 unchanged from previous assessment Cardizem drip at 2.5 mill per hour. At 2:00 patient resting in bed respirations unlabored telemetry A. fib with heart rate 100-110. Between 3:00/4:31/5:00 there were no changes. The patient was n.p.o. through echo today. Noted again on oh 6:00 observation.At 7:00 patient use the restroom brush teeth heart rate 1 20-1 40 while she is up return back to bed she had been around 130s lungs clear bowel sounds normal bowel movements regular. was in the room. We had discussed goal for heart rate to be under 100. I was contacted at 745 we increased the Cardizem to 240 in the morning and gave that instead of restarting the drip. Telemetry continued to show A. fib with RVR. 10:00 telemetry continues to show A. fib RVR heart rate 1 20-1 30. Patient remained unchanged through 11:00. Note from nurse Lee at [address] Sam stopped losartan due to low blood pressure wanted systolic blood pressure remained around 90 ordered a stat CK-MB and digoxin 250 mcg given. IV site remained clean dry and intact symmetry continue to show A. fib with RVR heart rate 1 20-1 30. At 2:00 today patient converted over to sinus rhythm no complaints no chest pain, no shortness of breath. IV flushes well. 3 PM sinus rhythm heart rate 65. Telemetry continued to show sinus rhythm with a heart rate of 63 at 4:00 this afternoon. Update PM 06/05/21. This p.m. patient and are present in room 104. Patient has no complaints today. She has had 2 bowel movements today. No mention of any blood or any other issue, no pain no nausea vomiting or diarrhea. She has had at least 6 voids today. She has consumed 100% of her meals today. No reported headache, no fever, no vision changes, no loss of taste/smell, No new URI symptoms, reviewed allergy symptoms, no cough/congestion/wheezing/SOA, No CP, no reported fatigue, no abd pain, no N/V/D, no constipation, no changes in urination/stooling, no new MSK pain except as above, no recent injuries except as listed above. Falls reviewed and listed above. Plan/New Orders: Monitor Cardizem overnight and consider change back to 120mg CD daily. Continue to Hold Losartan. Monitor BP with SBP goal >90. HR goal 60-100. Continue eliquis. colby nue Rosuvastatin. She wants generic meds as much as possible. Will try to provide these. If she remains in rhythm overnight we will plan on discharging in the morning. She does have mild evidence of heart failure and a MEL inhibitor or ARB would be beneficial as would be spironolactone. REVIEW OF SYMPTOMS: (Positives bolded) General: weight loss, fever, chills, night sweats, fatigue, appetite loss HEENT: blurry vision, eye pain, eye discharge, dry eyes, decreased vision, sore throat tinnitus, bloody nose, hearin gloss, sinus pain/pressure, ear pain/pressure. Respiratory: shortness of breath, cough, hemoptysis, wheezing, pleurisy, Cardiovascular: chest pain, PND, palpitation, edema, orthopnea, syncope, swelling of extremities. All symptoms resolved. Gastro: Nausea, vomiting, diarrhea, hematemesis, abdominal pain, constipation Genito: hematuria, dysuria, glycosuria, hesitancy, frequency, incontinence Musckelo: Arthralgia (CHRONIC), myalgia, muscle weakness, joint swelling, NSAID use Skin: rash, pruritis, sores, nail changes, skin thickening, change in wart/mole, itching, rash, new lesions, pruritus, nail changes Neuro: Migraine, numbness, ataxia, tremor, vertigo, weakness, memory loss, Irritability, dizziness Endocrine: excessive thirst, polyuria, cold intolerance, heat intolerance, goiter Psychiatric: depression, anxiety, anti-depressants, alcohol abuse, drug abuse, insomnia, change in sleep pattern and mood changes Heme/lymph: easy bruising, bleeding gums, blood clots, swollen glands, lymphedema, Allergic/immune: allergic rhinitis, hay fever, asthma, hives Constitutional:Appearance-No acute distress, Consistent with stated age. Orientation- Oriented x 3, alert Build and Nutrition-[normal]General- Patient is pleasant and cooperative with the interview and exam. Integumentary: General-No rashes, ulcers or lesions.Palpation- Normal skin moisture/turgor. Skin is warm to touch, appropriate. Capillary refill is normal bilateral Upper and lower extremity. Head/Neck:Head- normocephalic and atraumatic.Neck- without visible/palpable lumps or pulsations.Palpation- No bony tenderness about head/neck along frontal, occipital, temporal, parietal, mastoid, jawline, zygoma, orbit or any other location. NO temporal artery tenderness. No TMJ tenderness. Neck Supple.Thyroid-No thyromegaly, no nodules ENMT:Nares- bilateral quiet airflow, no discharge.Nasal mucosa- No bleeding noted and no ulcerations observed. Akins, moist. Turbinates non boggy.Lips- normal color, moist without cracks/lesionsOral Cavity/Palate- hard/soft palate intact without lesions, oral mucosa pink and moist. Dentition assessed. Tongue normal midline.Oropharynx- no pharyngeal erythema, Uvula midline. No post nasal drip. No exudate.Salivary glands- Non tender to palpation CHEST/LUNG:Inspection- symmetric chest wall no pectus deformity. Normal effort, no distress, no use of accessory muscles.Palpation- nontender sternum, ribline. No abnormal pulsations.Auscultation- Breath sounds normal throughout all lung nicholson. Normal tracheal sounds, Normal bronchial sounds overlying sternum, Bronchovessicular sounds normal between scapulae posteriorly, Normal vessicular breath sounds heard throughout periphery. Lungs are clear today. Adventitious sounds- No wheezes, rales, rhonchi. CARDIOVASCULAR:Carotid artery-normal, no bruits or abnormal pulsations. Palpation/Percussion- Normal PMI, no palpable thrill Auscultation- Regular rate and rhythm now. In rhythm,No murmur noted in sitting, supine positions. Extremities- no digital clubbing, cyanosis, edema, increased warmth. ABDOMEN:Inspection- normal and no visible pulsations. Normal contour. Auscultation- Bowel sounds normal, no abdominal bruits.Palpation/Percussion- soft, non-tender, no rebound tenderness, no rigidity (guarding), no jar tenderness, no masses.Liver-no hepatomegaly,Spleen no splenomegaly, Peripheral Vascular:Upper extremityLeft- Normal temperature with pink nailbeds and no ulcerations.Upper extremity Right-Normal temperature with pink nailbeds and no ulcerations.Lower extremity- Normal temperature with pink nailbeds and no ulcerations. DP pulses 2+ bilaterally. Pedal hair intact. Normal capillary refill.Edema- No edema. Musculoskeletal:Generalized-No generalized swelling or edema of extremities, no digital clubbing or cyanosis, neurovascularly intact all four extremities. Neurological:General- Moves all 4 extremities symmetrically. Symmetrical face and body posture.Cranial nerves- individually evaluated II-XII and intact. PERRLA, Normal EOMI, visual/special senses appear intact, Face is symmetrical and normal sensation/movement, normal tongue, normal strength/posture of neck musculature. Neuropsych:Oriented- Person, place, time. (AAOx3),Mood/affect- normal and congruent. Able to articulate well.Speech-Normal speech, normal rate, normal t one, normal use of language, volume and coherence.Associations- intact, no SI/HI, no hallucinations, delusions, obsessions.Judgment/insight- Appropriate.Memory-Recall intact, remote and recent memory intact.Knowledge- Age appropriate fund of knowledge, concentration and attention span normal. Lymphatic: Head/Neck- normal size and non tender to palpation.Axillary- normal size and non tender to palpation.Femoral and Inguinal- normal size and non tender to palpation. Objective: Vital Signs - 24 hr 06/04/21 20:00 06/04/21 21:00 06/04/21 22:00 Temperature 97.6 F Pulse Rate 130 H 125 H 110 H Pulse Rate [Apical] 147 H Respiratory Rate 18 18 16 Blood Pressure 142/92 H 142/88 H 134/88 O2 Sat by Pulse Oximetry 96 96 06/04/21 23:00 06/05/21 00:00 06/05/21 01:00 Temperature Pulse Rate 109 H 102 H 109 H Pulse Rate [Apical] Respiratory Rate 16 16 18 Blood Pressure 105/66 108/54 L O2 Sat by Pulse Oximetry 06/05/21 02:00 06/05/21 03:00 06/05/21 04:31 Temperature Pulse Rate 104 H 103 H 84 Pulse Rate [Apical] Respiratory Rate 16 18 16 Blood Pressure 113/81 90/52 L O2 Sat by Pulse Oximetry 06/05/21 05:00 06/05/21 05:20 06/05/21 06:00 Temperature 97.7 F Pulse Rate 92 H 103 H Pulse Rate [Apical] Respiratory Rate 16 18 Blood Pressure 111/82 O2 Sat by Pulse Oximetry 96 99 06/05/21 07:56 06/05/21 10:00 06/05/21 12:00 Temperature 98.2 F 97.2 F L Pulse Rate 112 H 128 H 67 Pulse Rate [Apical] Respiratory Rate 20 18 16 Blood Pressure 110/69 96/68 119/90 O2 Sat by Pulse Oximetry 96 98 95 06/05/21 12:29 06/05/21 13:45 06/05/21 14:00 Temperature 97.9 F Pulse Rate 120 H 66 Pulse Rate [Apical] Respiratory Rate 16 Blood Pressure 106/66 O2 Sat by Pulse Oximetry 97 95 06/05/21 15:49 06/05/21 18:00 Temperature 98.2 F Pulse Rate 66 62 Pulse Rate [Apical] Respiratory Rate 16 16 Blood Pressure 125/70 130/70 O2 Sat by Pulse Oximetry 98 96 Constitutional:Appearance-No acute distress, Consistent with stated age. Orientation- Oriented x 3, alert Build and Nutrition-[normal]General- Patient is pleasant and cooperative with the interview and exam. Integumentary: General-No rashes, ulcers or lesions.Palpation- Normal skin moisture/turgor. Skin is warm to touch, appropriate. Capillary refill is normal bilateral Upper and lower extremity. Head/Neck:Head- normocephalic and atraumatic.Neck- without visible/palpable lumps or pulsations.Palpation- No bony tenderness about head/neck along frontal, occipital, temporal, parietal, mastoid, jawline, zygoma, orbit or any other location. NO temporal artery tenderness. No TMJ tenderness. Neck Supple .Thyroid-No thyromegaly, no nodules ENMT:Nares- bilateral quiet airflow, no discharge.Nasal mucosa- No bleeding noted and no ulcerations observed. Akins, moist. Turbinates non boggy.Lips- normal color, moist without cracks/lesionsOral Cavity/Palate- hard/soft palate intact without lesions, oral mucosa pink and moist. Dentition assessed. Tongue normal midline.Oropharynx- no pharyngeal erythema, Uvula midline. No post nasal drip. No exudate.Salivary glands- Non tender to palpation CHEST/LUNG:Inspection- symmetric chest wall no pectus deformity. Normal effort, no distress, no use of accessory muscles.Palpation- nontender sternum, ribline. No abnormal pulsations.Auscultation- Breath sounds normal throughout all lung nicholson. Normal tracheal sounds, Normal bronchial sounds overlying sternum, Bronchovessicular sounds normal between scapulae posteriorly, Normal vessicular breath sounds heard throughout periphery. Lungs are clear today. Adventitious sounds- No wheezes, rales, rhonchi. CARDIOVASCULAR:Carotid artery-normal, no bruits or abnormal pulsations. Palpation/Percussion- Normal PMI, no palpable thrill Auscultation- Regular rate and rhythm now. In rhythm,No murmur noted in sitting, supine positions. Extremities- no digital clubbing, cyanosis, edema, increased warmth. ABDOMEN:Inspection- normal and no visible pulsations. Normal contour. Auscultation- Bowel sounds normal, no abdominal bruits.Palpation/Percussion- soft, non-tender, no rebound tenderness, no rigidity (guarding), no jar tenderness, no masses.Liver-no hepatomegaly,Spleen no splenomegaly, Peripheral Vascular:Upper extremityLeft- Normal temperature with pink nailbeds and no ulcerations.Upper extremity Right-Normal temperature with pink nailbeds and no ulcerations.Lower extremity- Normal temperature with pink nailbeds and no ulcerations. DP pulses 2+ bilaterally. Pedal hair intact. Normal capillary refill.Edema- No edema. Musculoskeletal:Generalized-No generalized swelling or edema of extremities, no digital clubbing or cyanosis, neurovascularly intact all four extremities. Neurological:General- Moves all 4 extremities symmetrically. Symmetrical face and body posture.Cranial nerves- individually evaluated II-XII and intact. PERRLA, Normal EOMI, visual/special senses appear intact, Face is symmetrical and normal sensation/movement, normal tongue, normal strength/posture of neck musculature. Neuropsych:Oriented- Person, place, time. (AAOx3),Mood/affect- normal and congruent. Able to articulate well.Speech-Normal speech, normal rate, normal tone, normal use of language, volume and coherence.Associations- intact, no SI/HI, no hallucinations, delusions, obsessions.Judgment/insight- Breanne ropriate.Memory-Recall intact, remote and recent memory intact.Knowledge- Age appropriate fund of knowledge, concentration and attention span normal. Lymphatic: Head/Neck- normal size and non tender to palpation.Axillary- normal size and non tender to palpation.Femoral and Inguinal- normal size and non tender to palpation. Laboratory Last Values WBC 6.47 K/ul (4.6-10.2) 06/05/21 10:31 RBC 4.56 10^6/ul (4.20-5.40) 06/05/21 10:31 Hgb 15.2 g/dl (12.0-16.0) 06/05/21 10:31 Hct 45.8 % (37.0-47.0) 06/05/21 10:31 MCV 100.4 fl (81.0-99.0) H 06/05/21 10:31 MCH 33.3 pg (27.0-31.0) H 06/05/21 10:31 MCHC 33.2 (31.8-35.4) 06/05/21 10:31 RDW Coeff of Fernando 13.7 % (11.6-14.8) 06/05/21 10:31 Plt Count 341 10^3/uL (140-440) 06/05/21 10:31 Immature Gran % (Auto) 0.3 % (0.0-5.0) 06/05/21 10:31 Neut % (Auto) 45.8 % (42.2-75.2) 06/05/21 10:31 Lymph % (Auto) 40.2 (10.0-50.0) 06/05/21 10:31 Dukes % (Auto) 10.4 (0-10) H 06/05/21 10:31 Eos % (Auto) 2.5 % (0.0-7.0) 06/05/21 10:31 Baso % (Auto) 0.8 % (0.0-3.0) 06/05/21 10:31 Neut # (Auto) 3.0 K/ul (2.0-6.9) 06/05/21 10:31 Lymph # (Auto) 2.6 K/uL (0.60-3.4) 06/05/21 10:31 Dukes # (Auto) 0.7 K/uL (0.4-2.0) 06/05/21 10:31 Eos # (Auto) 0.2 K/ul (0.0-0.7) 06/05/21 10:31 Baso # (Auto) 0.1 K/uL (0-0.2) 06/05/21 10:31 Immature Gran # (Auto) 0.0 (0.0-1.0) 06/05/21 10:31 PT 9.9 SEC (9.3-11.0) 06/04/21 11:11 INR 0.93 SI (0.0-3.9) 06/04/21 11:11 APTT 24.5 SEC (23.9-40.0) 06/04/21 11:11 Sodium 142.5 mmol/L (134.5-145) 06/05/21 10:31 Potassium 4.25 mmol/L (3.5-5.1) 06/05/21 10:31 Chloride 108.7 mmol/L (98-107) H 06/05/21 10:31 Carbon Dioxide 26.7 mmol/L (22-30.0) 06/05/21 10:31 Anion Gap 11.35 06/05/21 10:31 BUN 15.1 mg/dL (7-17) 06/05/21 10:31 Creatinine 0.91 mg/dL (0.60-1.30) 06/05/21 10:31 Estimated GFR (MDRD) 60.00 mL/min 06/05/21 10:31 BUN/Creatinine Ratio 16.59 06/05/21 10:31 Glucose 110.1 mg/dL (74-106) H 06/05/21 10:31 Calcium 9.13 mg/dL (8.4-10.2) 06/05/21 10:31 Total Bilirubin 0.65 mg/dL (0.2-1.3) 06/05/21 10:31 AST 30.6 U/L (14-36) 06/05/21 10:31 ALT 21.4 U/L (0-35) 06/05/21 10:31 Alkaline Phosphatase 58.1 U/L (53-141) 06/05/21 10:31 Total Creatine Kinase 54.5 U/L (30-135) 06/05/21 10:31 Troponin I 0.015 ng/ml (0.0000-0.120) 06/05/21 10:31 NT-Pro-B Natriuret Pep 2420.000 pg/mL (0-300) H 06/05/21 10:31 Total Protein 7.14 g/dL (6.3-8.2) 06/05/21 10:31 Albumin 4.09 g/dL (3.5-5.0) 06/05/21 10:31 Globulin 3.05 06/05/21 10:31 Albumin/Globulin Ratio 1.34 06/05/21 10:31 D-Dimer 370.10 ng/mL (<500) 06/04/21 11:11 Urine Color Yellow (YELLOW) 06/04/21 17:21 Urine Clarity Clear (CLEAR) 06/04/21 17:21 Urine pH 5.5 (5-9) 06/04/21 17:21 Ur Specific Coleman 1.015 (1.005-1.030) 06/04/21 17:21 Urine Protein Negative (NEGATIVE) 06/04/21 17:21 Urine Glucose (UA) Negative (NEGATIVE) 06/04/21 17:21 Urine Ketones 1+ (NEGATIVE) H 06/04/21 17:21 Urine Blood Trace-intact (NEGATIVE) H 06/04/21 17:21 Urine Nitrite Negative (NEGATIVE) 06/04/21 17:21 Urine Bilirubin Negative (NEGATIVE) 06/04/21 17:21 Urine Urobilinogen 0.2 (0.2) 06/04/21 17:21 Ur Leukocyte Esterase Trace (NEGATIVE) H 06/04/21 17:21 Urine Microscopic RBC 0-2 (0-2) 06/04/21 17:21 Urine Microscopic WBC 0-2 (0-2) 06/04/21 17:21 Ur Squamous Epith Cells 0-2 (0-5) 06/04/21 17:21 Adenovirus (PCR) Not detected (NOT DETECT) 06/04/21 10:40 B. pertussis DNA (PCR) Not detected (NOT DETECT) 06/04/21 10:40 B.parapertussis DNA PCR Not detected (NOT DETECT) 06/04/21 10:40 C. pneumoniae DNA (PCR) Not detected (NOT DETECT) 06/04/21 10:40 Coronavirus OC43 (PCR) Not detected (NOT DETECT) 06/04/21 10:40 Coronavirus HKU1 (PCR) Not detected (NOT DETECT) 06/04/21 10:40 Coronavirus 229E (PCR) Not detected (NOT DETECT) 06/04/21 10:40 Coronavirus NL63 (PCR) Not detected (NOT DETECT) 06/04/21 10:40 Human Metapneumovir PCR Not detected (NOT DETECT) 06/04/21 10:40 Influenza Type A (PCR) Not detected (NOT DETECT) 06/04/21 10:40 Influenza B (RT-PCR) Not detected (NOT DETECT) 06/04/21 10:40 M. pneumoniae (PCR) Not detected (NOT DETECT) 06/04/21 10:40 Parainfluenza 1 (PCR) Not detected (NOT DETECT) 06/04/21 10:40 Parainfluenza 2 (PCR) Not detected (NOT DETECT) 06/04/21 10:40 Parainfluenza 3 (PCR) Not detected (NOT DETECT) 06/04/21 10:40 Parainfluenza 4 (PCR) Not detected (NOT DETECT) 06/04/21 10:40 RSV (PCR) Not detected (NOT DETECT) 06/04/21 10:40 Entero/Rhino (PCR) Not detected (NOT DETECT) 06/04/21 10:40 SARS-CoV-2 (PCR) Not detected (NOT DETECT) 06/04/21 10:40 (1) Atrial fibrillation with rapid ventricular response: Status: Acute Code(s): I48.91 - Unspecified atrial fibrillation SNOMED Code(s): 860435228460553 (2) Essential hypertension: Status: Acute Code(s): I10 - Essential (primary) hypertension SNOMED Code(s): 48678736 (3) Hyperlipidemia: Status: Inactive Code(s): E78.5 - Hyperlipidemia, unspecified SNOMED Code(s): 34736876 (4) Osteopenia: Status: Inactive Code(s): M85.80 - Other specified disorders of bone density and structure, unspecified site SNOMED Code(s): 968475975 (5) Osteopenia: Status: Inactive Code(s): M85.80 - Other specified disorders of bone density and structure, unspecified site SNOMED Code(s): 380776608 Plan: AFIB w/ RVR: 80-year-old female HD #2. AFIB with RVR. Cardizem increased to 240mg daily, losartan has been held. She was seen today by Cardiology, given digoxon 250mcg and has since converted to SR. She had elevation of Troponin from 0.015 to 0.030. I repeated a fourth level annd it returned to baseline 0.015. She has had echo today: Left atrial enlargement, ejection fraction roughly 40%. Normal valve activity, no effusion, no thrombus, normal left ventricular size. Hypokinetic septal wall ejection fraction 40%. I have reviewed the consult note by Dr. Sam. Patient is on Eliquis 5 mg twice daily for anticoagulation we will continue this. We will continue observation status for now. Now that she is resolved and back in spontaneous sinus rhythm. I do not think any further digoxin is needed. We will continue the Cardizem for now. We will consider beta-pippa add on if needed. With her history of heart failure with ejection fraction of 40% she is essentially asymptomatic. BNP is elevated. Typically with heart failure Cardizem was last beneficial but it is felt through myself and through cardiology that she can likely tolerate this. Reviewed blood thinners again today. Risk benefits and alternatives to these discussed with patient and . I will order CBC and CMP again in the morning. I will await the TSH. Patient remains asymptomatic and we will continue to monitor for observation overnight. If she continues to remain stable we will discharge in the morning. - Continue Admit obs - Normal diet. - Eliquis for DVT prophylaxis - Home meds continued - Telemetry - Am cbc/cmp. Essential HTN: Chronic Essential HTN at goal. She is a little lower than ideal> Losartan has been stopped. Consider resume losartan 50mg daily. Goal SBP >90. - Take meds as recommended. Hyperlipidemia: Chronic stable problem. We will monitor blood work for kidney/liver. Take Rx at night. If any muscle cramps call clinic. Monitor for symptoms of statin. - Crestor 20mg daily. Osteopenia: ON raloxifene. On estrogen. Menopause: On raloxifene. On estrogen. DVT Prophy: Eliquis 5mg BID. - RBA to anticoag d/w patient GI Prophy: None Activity: Ad ronn Diet: Normal Code: Full Disposition: Today have discussed the case with patient and , nurse Grimaldo several times, and with [employer] retailer sales consultant Dr. Sam with cardiology. The patient vitals have been reviewed all day observations have been reviewed telemetry data has been reviewed. I am still waiting for the TSH to return. She has been in RVR for about 24 hours and has now spontaneously converted. We will watch her for overnight and if she remains in rhythm we will discharge on Cardizem, possibly losartan, Eliquis and Crestor. She will follow up with me as an outpatient. We will have outpatient cardiology evaluation and consider titration of medications to cover for mild heart failure as well she is currently asymptomatic from an A. fib standpoint, echo has been completed and there is no evidence of thrombus. With her [id number] of greater than 4 she would benefit from anticoagulation at this time. As mentioned previously her goal is a rate of 80-100. I will follow up with the patient again in the morning. Total time spent today greater than 35 minutes.
[2021-06-05] MEDS: CRESTOR PO SCH (20:16)
[2021-06-06 05:15] LABS: BASOPHILS # (AUTO) 0.1 K/uL (0-0.2); BASOPHILS % (AUTO) 0.9 % (0.0-3.0); EOSINOPHILS # (AUTO) 0.2 K/ul (0.0-0.7); EOSINOPHILS % (AUTO) 4.2 % (0.0-7.0); HEMATOCRIT 39.6 % (37.0-47.0); HEMOGLOBIN 13.4 g/dl (12.0-16.0); LYMPHOCYTES # (AUTO) 2.4 K/uL (0.60-3.4); LYMPHOCYTES % (AUTO) 41.4 (10.0-50.0); MEAN CORPUSCULAR HEMOGLOBIN 33.6 pg (27.0-31.0); MEAN CORPUSCULAR HGB CONC 33.8 (31.8-35.4); MEAN CORPUSCULAR VOLUME 99.2 fl (81.0-99.0); MONOCYTES # (AUTO) 0.7 K/uL (0.4-2.0); MONOCYTES % (AUTO) 12.5 (0-10); NEUTROPHILS # (AUTO) 2.4 K/ul (2.0-6.9); PLATELET COUNT 291 10^3/uL (140-440); RDW COEFFICIENT OF VARIATION 13.6 % (11.6-14.8); RED BLOOD COUNT 3.99 10^6/ul (4.20-5.40); WHITE BLOOD COUNT 5.77 K/ul (4.6-10.2)
[2021-06-06 05:17] LABS: ALANINE AMINOTRANSFERASE 18.3 U/L (0-35); ALBUMIN 3.52 g/dL (3.5-5.0); ASPARTATE AMINO TRANSFERASE 25.1 U/L (14-36); BILIRUBIN,TOTAL 0.47 mg/dL (0.2-1.3); BLOOD UREA NITROGEN 18.3 mg/dL (7-17); CALCIUM 8.45 mg/dL (8.4-10.2); CARBON DIOXIDE 26.1 mmol/L (22-30.0); CHLORIDE 107.8 mmol/L (98-107); CREATININE 0.86 mg/dL (0.60-1.30); GLUCOSE 96.4 mg/dL (74-106); POTASSIUM 4.04 mmol/L (3.5-5.1); SODIUM 138.5 mmol/L (134.5-145); TOTAL PROTEIN 6.21 g/dL (6.3-8.2)
[2021-06-06 05:46] VITALS: BP 136/75; TEMP 97.5
[2021-06-06 07:21] LABS: FREE THYROXINE INDEX 1.4 (1.2-4.9); THYROXINE (T4) 6.1 ug/dL (4.5-12.0); TSH 13.5 uIU/mL (0.450-4.500)
--- NOTE | 2021-06-06 07:24 | PCM.DC ---
Final Diagnosis: Afib with RVR - Diltiazem 120mg CD q 12 hours at discharge - Eliquis 5mg BID at discharge. Sinus bradycardia Essential Hypertension - Losartan held at discharge CHF Mild EF 40% Hyperlipidemia - Simvastatin changed to rosuvastatin in hospital Osteopenia (1) Atrial fibrillation with rapid ventricular response: Status: Acute Code(s): I48.91 - Unspecified atrial fibrillation SNOMED Code(s): 755468597881935 (2) Essential hypertension: Status: Acute Code(s): I10 - Essential (primary) hypertension SNOMED Code(s): 53063175 (3) Hyperlipidemia: Status: Inactive Code(s): E78.5 - Hyperlipidemia, unspecified SNOMED Code(s): 33604606 (4) Osteopenia: Status: Inactive Code(s): M85.80 - Other specified disorders of bone density and structure, unspecified site SNOMED Code(s): 383829305 (5) Osteopenia: Status: Inactive Code(s): M85.80 - Other specified disorders of bone density and structure, unspecified site SNOMED Code(s): 294927507 Reason for Hospitalization: Afib with RVR +Palpitations. Converted to Sinus rhythm. Prognosis at Discharge: Good Prognosis. Patient has stabilized rate/rhythm by d/c. Condition at Discharge: Improved/stable. Back to baseline. Sinus rhythm (aviva). Medications at Discharge: Ambulatory Orders Medication Instructions Recorded biotin 5,000 mcg-si diox 100 1 ea PO DAILY 06/14/15 mg-cysteine 50 mg-lut 250 mcg-mvit tablet el-4-gkf-epa-fish oil-vit D3 900 1 ea PO DAILY 06/14/15 mg-1,000 unit capsule turmeric root extract 500 mg 500 mg PO DAILY 06/14/15 capsule cyanocobalamin (vitamin B-12) 500 2,500 mcg PO DAILY #30 tab-cap 12/12/ mcg tablet (Vitamin B-12) Statin Guard 1 tab PO BEDTIME 12/30/16 aspirin 81 mg tablet,delayed 81 mg PO EVERY OTHER DAY #90 tab 07/16/20 release loratadine 10 mg tablet 10 mg PO DAILY #90 tab 07/16/20 estradiol 1 g VAGINAL QDAY #42.5 g 01/11/21 bvvniiayplim-nspfskxg-dsrfcx tablet 1 tab PO QDAY 01/11/21 raloxifene 60 mg tablet 60 mg PO DAILY #90 tab-cap 01/11/21 apixaban 5 mg tablet 5 mg PO BID 30 Days #60 tab 06/06/21 diltiazem HCl 60 mg tablet 120 mg PO Q12HR 30 Days #60 tab 06/06/21 rosuvastatin 10 mg tablet 20 mg PO BEDTIME 30 Days #30 tab 06/06/21 Lab/Diagnostics: Laboratory Last Values WBC 5.77 K/ul (4.6-10.2) 06/06/21 04:31 RBC 3.99 10^6/ul (4.20-5.40) L 06/06/21 04:31 Hgb 13.4 g/dl (12.0-16.0) 06/06/21 04:31 Hct 39.6 % (37.0-47.0) D 06/06/21 04:31 MCV 99.2 fl (81.0-99.0) H 06/06/21 04:31 MCH 33.6 pg (27.0-31.0) H 06/06/21 04:31 MCHC 33.8 (31.8-35.4) 06/06/21 04:31 RDW Coeff of Fernando 13.6 % (11.6-14.8) 06/06/21 04:31 Plt Count 291 10^3/uL (140-440) 06/06/21 04:31 Immature Gran % (Auto) 0.0 % (0.0-5.0) 06/06/21 04:31 Neut % (Auto) 41.0 % (42.2-75.2) L 06/06/21 04:31 Lymph % (Auto) 41.4 (10.0-50.0) 06/06/21 04:31 [place] % (Auto) 12.5 (0-10) H 06/06/21 04:31 Eos % (Auto) 4.2 % (0.0-7.0) 06/06/21 04:31 Baso % (Auto) 0.9 % (0.0-3.0) 06/06/21 04:31 Neut # (Auto) 2.4 K/ul (2.0-6.9) 06/06/21 04:31 Lymph # (Auto) 2.4 K/uL (0.60-3.4) 06/06/21 04:31 [place] # (Auto) 0.7 K/uL (0.4-2.0) 06/06/21 04:31 Eos # (Auto) 0.2 K/ul (0.0-0.7) 06/06/21 04:31 Baso # (Auto) 0.1 K/uL (0-0.2) 06/06/21 04:31 Immature Gran # (Auto) 0.0 (0.0-1.0) 06/06/21 04:31 PT 9.9 SEC (9.3-11.0) 06/04/21 11:11 INR 0.93 SI (0.0-3.9) 06/04/21 11:11 APTT 24.5 SEC (23.9-40.0) 06/04/21 11:11 Sodium 138.5 mmol/L (134.5-145) 06/06/21 04:31 Potassium 4.04 mmol/L (3.5-5.1) 06/06/21 04:31 Chloride 107.8 mmol/L (98-107) H 06/06/21 04:31 Carbon Dioxide 26.1 mmol/L (22-30.0) 06/06/21 04:31 Anion Gap 8.64 06/06/21 04:31 BUN 18.3 mg/dL (7-17) H 06/06/21 04:31 Creatinine 0.86 mg/dL (0.60-1.30) 06/06/21 04:31 Estimated GFR (MDRD) 64.00 mL/min 06/06/21 04:31 BUN/Creatinine Ratio 21.27 06/06/21 04:31 Glucose 96.4 mg/dL (74-106) 06/06/21 04:31 Calcium 8.45 mg/dL (8.4-10.2) 06/06/21 04:31 Total Bilirubin 0.47 mg/dL (0.2-1.3) 06/06/21 04:31 AST 25.1 U/L (14-36) 06/06/21 04:31 ALT 18.3 U/L (0-35) 06/06/21 04:31 Alkaline Phosphatase 53.0 U/L (53-141) 06/06/21 04:31 Total Creatine Kinase 54.5 U/L (30-135) 06/05/21 10:31 Troponin I 0.015 ng/ml (0.0000-0.120) 06/05/21 10:31 NT-Pro-B Natriuret Pep 2420.000 pg/mL (0-300) H 06/05/21 10:31 Total Protein 6.21 g/dL (6.3-8.2) L 06/06/21 04:31 Albumin 3.52 g/dL (3.5-5.0) 06/06/21 04:31 Globulin 2.69 06/06/21 04:31 Albumin/Globulin Ratio 1.30 06/06/21 04:31 D-Dimer 370.10 ng/mL (<500) 06/04/21 11:11 Urine Color Yellow (YELLOW) 06/04/21 17:21 Urine Clarity Clear (CLEAR) 06/04/21 17:21 Urine pH 5.5 (5-9) 06/04/21 17:21 Ur Specific [place] 1.015 (1.005-1.030) 06/04/21 17:21 Urine Protein Negative (NEGATIVE) 06/04/21 17:21 Urine Glucose (UA) Negative (NEGATIVE) 06/04/21 17:21 Urine Ketones 1+ (NEGATIVE) H 06/04/21 17:21 Urine Blood Trace-intact (NEGATIVE) H 06/04/21 17:21 Urine Nitrite Negative (NEGATIVE) 06/04/21 17:21 Urine Bilirubin Negative (NEGATIVE) 06/04/21 17:21 Urine Urobilinogen 0.2 (0.2) 06/04/21 17:21 Ur Leukocyte Esterase Trace (NEGATIVE) H 06/04/21 17:21 Urine Microscopic RBC 0-2 (0-2) 06/04/21 17:21 Urine Microscopic WBC 0-2 (0-2) 06/04/21 17:21 Ur Squamous Epith Cells 0-2 (0-5) 06/04/21 17:21 Adenovirus (PCR) Not detected (NOT DETECT) 06/04/21 10:40 B. pertussis DNA (PCR) Not detected (NOT DETECT) 06/04/21 10:40 B.parapertussis DNA PCR Not detected (NOT DETECT) 06/04/21 10:40 C. pneumoniae DNA (PCR) Not detected (NOT DETECT) 06/04/21 10:40 Coronavirus OC43 (PCR) Not detected (NOT DETECT) 06/04/21 10:40 Coronavirus HKU1 (PCR) Not detected (NOT DETECT) 06/04/21 10:40 Coronavirus 229E (PCR) Not detected (NOT DETECT) 06/04/21 10:40 Coronavirus NL63 (PCR) Not detected (NOT DETECT) 06/04/21 10:40 Human Metapneumovir PCR Not detected (NOT DETECT) 06/04/21 10:40 Influenza Type A (PCR) Not detected (NOT DETECT) 06/04/21 10:40 Influenza B (RT-PCR) Not detected (NOT DETECT) 06/04/21 10:40 M. pneumoniae (PCR) Not detected (NOT DETECT) 06/04/21 10:40 Parainfluenza 1 (PCR) Not detected (NOT DETECT) 06/04/21 10:40 Parainfluenza 2 (PCR) Not detected (NOT DETECT) 06/04/21 10:40 Parainfluenza 3 (PCR) Not detected (NOT DETECT) 06/04/21 10:40 Parainfluenza 4 (PCR) Not detected (NOT DETECT) 06/04/21 10:40 RSV (PCR) Not detected (NOT DETECT) 06/04/21 10:40 Entero/Rhino (PCR) Not detected (NOT DETECT) 06/04/21 10:40 SARS-CoV-2 (PCR) Not detected (NOT DETECT) 06/04/21 10:40 IMAGING/PROCEDURES CXR: No acute disease. Echo: Dilated left atria, normal LV, hypokinectic portion. EF 40%. PENDING TESTS: TSH Education Provided to Patient and Family: 1. Discussed afib. 2. Blood thinner education regarding eliquis: Bleeding risks d/w patient. 3. HR/BP/CHF education. 4. Limited caffeine. 5. Close f/u with me in clinic Next OV thursday06/11/21 at 0800. 6. When to return to ED d/w patient. 7. Diet normal. Follow-ups: 1. Dr. Werner 06/11/21. Discharge Disposition: Home Hospital Course: 80-year-old female hospital day #3 admitted to observation status with new onset A. fib with RVR palpitations/pressure. The patient was seen in ED, found to be in AFIB with RVR, started on a Cardizem drip, and admitted to the floor for observation status. She was rate controlled, changed to oral Cardizem 120 mg by me and monitored overnight. This was found not to be adequate and it was increased to 240 mg daily with the drip restarted for a short time. The patient was seen by DR. Ramirez, had an echo yesterday which showed a ejection fraction of approximately 40%. Both patient/ and myself were appreciative of the consult/asssitance. She was given digoxin once IVP 250mg and she converted to sinus rhythm. Cardizem PO onboard at 240mg q 24 hours controlled rate and patient has been bradycardic. BP was found to be mildly low, losartan was held. Her simvastatin was changed to crestor for better medication interaction with the cardizem. The patient has remained afebrile throughout the hospital stay. Heart rate since 145PM June 05 has been 66, 62, 90 (at 01:54 this morning) and she was 58 at 554 this morning. We have held her losartan and her blood pressure has been stable. Most recent blood pressure 136/75 with a few others anywhere from 106-126/65-90 and respiratory rate remained stable at 18. The patient has been in sinus rhythm since 115 yesterday afternoon and bradycardic this morning. Patient had 2 bowel movements on June 05 without any issues. No blood, no diarrhea or constipation. She has had 6 voids in last 24 hours. We have not monitored I's and O's strictly. Laboratory assessment June 06 showed normal white blood cell count 5.77, hemoglobin 13.4, platelets of 291. These are normal. Chemistry panel today normal sodium 130.5, potassium 4.04, creatinine 0.86, Glucose 96.4, AST 25, ALT 18.3. her NT proBNP yesterday was 2420. Her TSH is still pending. I reviewed overnight nurse observations as well as telemetry. She has been somewhat bradycardic but she has been calm respiratory status normal, no chest pain and comfortable. Reviewed each observation narrative independently. I will back her Cardizem down to 120 mg q12 hour dosing and we will plan to see her in cl inic on June 11 at 8:00 in the morning. At that point we will consider resuming her losartan and consider adding medications for heart failure to include a beta-pippa/Aldactone. We will consider referal to cardiology at that point as well. As of now she is sinus rhythm with some bradycardia. She has no symptoms and has remained asymptomatic throughout the hospital stay. Patient cardizem changed 06/05/[address] ramirez to 120mg q12 hour tablet. This medication will be continued at d/c. Patient and in room this am. Education provided as listed. No new questions. Recommended to check BP/HR 1- 2x daily. F/U with me in clinic 06/11/21 at 0800. Day of D/C physical Examination: Vital Signs 06/06/21 01:54 06/06/21 05:18 06/06/21 05:45 Temperature 97.2 F L 97.5 F L Pulse Rate 90 58 L Respiratory Rate 18 18 Blood Pressure 126/65 136/75 O2 Sat by Pulse Oximetry 98 98 95 Constitutional:Appearance-No acute distress, Consistent with stated age. Orientation- Oriented x 3, alertBuild and Nutrition-[normal]General- Patient is pleasant and cooperative with the interview and exam. Integumentary: General-No rashes, ulcers or lesions.Palpation- Normal skin moisture/turgor. Skin is warm to touch, appropriate. Capillary refill is normal bilateral Upper and lower extremity. Head/Neck:Head- normocephalic and atraumatic.Neck- without visible/palpable lumps or pulsations.Palpation- No bony tenderness about head/neck along frontal, occipital, temporal, parietal, mastoid, jawline, zygoma, orbit or any other location. NO temporal artery tenderness. No TMJ tenderness. Neck Supple.Thyroid-No thyromegaly, no nodules ENMT:Nares- bilateral quiet airflow, no discharge.Nasal mucosa- No bleeding noted and no ulcerations observed. [place], moist. Turbinates non boggy.Lips- normal color, moist without cracks/lesionsOral Cavity/Palate- hard/soft palate intact without lesions, oral mucosa pink and moist. Dentition assessed. Tongue normal midline.Oropharynx- no pharyngeal erythema, Uvula midline. No post nasal drip. No exudate.Salivary glands- Non tender to palpation CHEST/LUNG:Inspection- symmetric chest wall no pectus deformity. Normal effort, no distress, no use of accessory muscles.Palpation- nontender sternum, ribline. No abnormal pulsations.Auscultation- Breath sounds normal throughout all lung nicholson. Normal tracheal sounds, Normal bronchial sounds overlying sternum, Bronchovessicular sounds normal between scapulae posteriorly, Normal vessicular breath sounds heard throughout periphery. Lungs are clear today. Adventitious sounds- No wheezes, rales, rhonchi. CARDIOVASCULAR:Carotid artery-normal, no bruits or abnormal pulsations. Palpation/Percussion- Normal PMI, no palpable thrillAuscultation- Regular rate and rhythm now now bradycardic ~55. In rhythm,No murmur noted in sitting, supine positions. Extremities- no digital clubbing, cyanosis, edema, increased warmth. ABDOMEN:Inspection- normal and no visible pulsations. Normal contour. Auscultation- Bowel sounds normal, no abdominal bruits.Palpation/Percussion- soft, non-tender, no rebound tenderness, no rigidity (guarding), no jar tenderness, no masses.Liver-no hepatomegaly,Spleen no splenomegaly, Peripheral Vascular:Upper extremityLeft- Normal temperature with pink nailbeds and no ulcerations.Upper extremity Right-Normal temperature with pink nailbeds and no ulcerations.Lower extremity- Normal temperature with pink nailbeds and no ulcerations. DP pulses 2+ bilaterally. Pedal hair intact. Normal capillary refill.Edema- No edema. Musculoskeletal:Generalized-No generalized swelling or edema of extremities, no digital clubbing or cyanosis, neurovascularly intact all four extremities. Neurological:General- Moves all 4 extremities symmetrically. Symmetrical face and body posture.Cranial nerves- individually evaluated II-XII and intact. PERRLA, Normal EOMI, visual/special senses appear intact, Face is symmetrical and normal sensation/movement, normal tongue, normal strength/posture of neck musculature. Neuropsych:Oriented- Person, place, time. (AAOx3),Mood/affect- normal and congruent. Able to articulate well.Speech-Normal speech, normal rate, normal tone, normal use of language, volume and coherence.Associations- intact, no SI/HI, no hallucinations, delusions, obsessions.Judgment/insight- Appropriate.Memory-Recall intact, remote and recent memory intact.Knowledge- Age appropriate fund of knowledge, concentration and attention span normal. Lymphatic: Head/Neck- normal size and non tender to palpation.Axillary- normal size and non tender to palpation.Femoral and Inguinal- normal size and non tender to palpation. Plan: 1. D/C home today. 2. New medications d/w patient - Eliquis 5mg BID - Cardizem 120mg q12 hours - Hold Losartan - Simvastatin changed to crestor. 3. Keep appt with me 0800 06/11/21 4. When to call/return to ED d/w patient today. 5. Fall precautions. 6. Cardiology evaluation to be set up as outpatient. 32 minutes spent on coordination of care/discharge today. I appreciate Dr. Ramirez and the involvement with this patient.
[2021-06-06] MEDS: ELIQUIS PO SCH (08:38)
[2021-06-06] MEDS: RALOXIFENE 60 MG PO SCH (08:40)
[2021-06-06] MEDS: NON-FORMULARY MEDICATION (Estradiol 0.01 % (0.1 mg/gram) cream) VAGINAL SCH (08:40)
[2021-06-06] MEDS ORDERED: CARDIZEM PO SCH (09:00)
--- NOTE | 2021-06-07 14:39 | CONS ---
DATE OF SERVICE: 06/06/21 CONSULT FOLLOWUP SUBJECTIVE: 80 year old white female seen on consultation for atrial fibrillation with rapid ventricular response. She had converted to sinus rhythm spontaneously yesterday afternoon. She has been in sinus rhythm with rate of 55 to 65 per minute since then. The patient converted to sinus rhythm spontaneously. REVIEW OF SYSTEMS: According to the nursing staff. CONSTITUTIONAL: No night sweats. No fatigue, malaise, lethargy. No fever or chills. HEENT: Eyes: No visual changes. No eye pain. No eye discharge. ENT: No runny nose. No epistaxis. No sinus pain. No sore throat. No odynophagia. No ear pain. No congestion. RESPIRATORY: No cough, no congestion. No hemoptysis. CARDIOVASCULAR: No angina symptoms. No CHF symptoms. No atypical chest pain for CAD. No palpitations. No shortness of breath. GASTROINTESTINAL: No abdominal pain. No nausea or vomiting. No diarrhea or constipation. No hematemesis. No hematochezia. GENITOURINARY: No urgency. No frequency. No dysuria. No hematuria. No obstructive symptoms. No discharge. No pain. No significant abnormal bleeding. MUSCULOSKELETAL: No musculoskeletal pain. No joint swelling. No arthritis. NEUROLOGICAL: No headache. No neck pain. No syncope. No seizures. No dizziness. PSYCHIATRIC: Not anxious. No depression. No suicidal thoughts. No homicidal thoughts. SKIN: No rash. No lesions. No wounds. ENDOCRINE: No unexplained weight loss. No weight gain. HEMATOLOGIC/LYMPHATIC: No anemia. No purpura. No petechiae. No prolonged or excessive bleeding. No palpable lymph nodes. Medications used to control her ventricular response yesterday were Cardizem and Lanoxin total of 0.5mg IV. PHYSICAL EXAMINATION: HEENT: Head normocephalic, atraumatic. Eyes: Extraocular muscles are intact. Pupils are equal, round and reactive to light and accommodation. Ears: No lesions. Nose appeared normal. Throat: No exudate or erythema. NECK: Supple. No JVD, no carotid bruit. No lymphadenopathy or thyromegaly. LUNGS: Clear to auscultation. Percussion note normal. Chest symmetrical. HEART: S1, S2, no S3. No murmur. No cyanosis or clubbing. No ascites. Pulses: Dorsalis pedis and posterior tibial pulses +1 to +2 bilaterally. ABDOMEN: Soft. Nontender. Bowel sounds active. No CVA tenderness. No mass felt. EXTREMITIES: No edema. Full range of motion of all extremities, equal. NEUROLOGIC: No focal deficit. Cranial nerves II through XII are grossly intact. No headache, no double vision or headache. SKIN: Not dry. Intact. Turgor - normal. LYMPHATIC: No palpable lymph nodes/no lymphedema. MUSCULOSKELETAL: Normal joints with no swelling. Muscle tone is normal. ASSESSMENT: 1. Paroxysmal atrial fibrillation CHADS II VASC Score 4 2. History of hypertension 3. Dyslipidemia with worthy findings. The patient didn't have any evidence of acute event. Cardiac markers are negative. EKG atrial fibrillation with rapid ventricular response. Nonspecific ST-T wave changes. The patient converted to sinus rhythm. The patient had an EKG which showed no acute findings. LVH with rate of approximately 60 per minute. 4. Echocardiogram revealed borderline LVH with enlarged LA cavity which was approximately 4.5cm. Hypokinetic septum noted with LV ejection fraction 40%. 5. No evidence of CHF noted and patient was practically symptomatic after she was hospitalized. She was in regular room 6. The patient didn't have any abnormal ausculatory findings of cardiovascular system. RECOMMENDATIONS: 1. Cardizem 120mg twice a day could be added depending upon the patient's blood pressure and heart rate 2. The patient has enlarged left atrial cavity 4.5cm and history of hypertension. The patient may go in and out atrial fibrillation. 3. The patient is noted to paroxysmal further as an outpatient. Dronedarone that is into bracket Multaq or Flecainide. There is Tambocor that could be added to sustain the patient in sinus rhythm. 4. Agreed with side of effects of Eliquis discussed including GI bleeding and intracranial bleed. Not to use nonsteroidal antiinflammatory 5. Losartan could be added as an outpatient 6. Echo particular attention to LV function could be done as an outpatient. Ejection fraction should improve with normal sinus rhythm 7. Holter Monitor in 6-8 weeks as an outpatient to evaluate the effectiveness of treatment Thanks for referral FRANNY
== END 2021-06-06 10:02 | disposition home or self-care (01) ==
LOC: MEDSURG A 10:09 → ED 10:09 → MEDSURG A 13:16
PROVIDERS: ADMIT Family Medicine; ATTEND Family Medicine
DX: R42 Dizziness and giddiness; R53.1 Weakness; R00.2 Palpitations; F41.9 Anxiety disorder, unspecified; Z20.822 Contact with and (suspected) exposure to COVID-19; Z79.01 Long term (current) use of anticoagulants